=== PATIENT | male | born 1935 | race Caucasian/White ===

== ENCOUNTER 2018-01-09 15:40 | Inpatient (IN) ==
[2018-01-09] MEDS ORDERED: Isovue-370 500 ML INFUS..BTL IV ONE (17:56)
[2018-01-09] MEDS ORDERED: Piperacillin/Tazobactam 3.375 GM in Water for inj. (sterile) 20 ML IVP ONE (17:58)
--- NOTE | 2018-01-09 17:58 | Emergency Department Note ---
Disposition Clinical Impression: Urinary retention Urinary tract infection Qualifiers: Urinary tract infection type: site unspecified Hematuria presence: without hematuria Qualified Code(s): N39.0 - Urinary tract infection, site not specified Fever Qualifiers: Fever type: unspecified Qualified Code(s): R50.9 - Fever, unspecified Sepsis Qualifiers: Sepsis type: sepsis due to unspecified organism Qualified Code(s): A41.9 - Sepsis, unspecified organism Disposition: Still a Patient Condition: Fair [facility] Care Provider[facility] - Forms: ED Satisfaction Letter Fever HPI - General Chief Complaint: ED Fever Stated Complaint: fever after catheter removal Time Seen by Provider: 01/09/18 16:49 Source: patient, family () Limitations: no limitations Nursing Notes Reviewed: Yes Vital Signs Reviewed: Yes - History of Present Illness HPI Narrative: 82-year-old male presents an emergency department with fever. His is at bedside to assist with history. Reported fever 101.9 at home. Patient recently had hernia surgery performed by surgeon Dr. Kim to the right inguinal area. 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 He seen his urologist Dr. Quintero on multiple occasions with hurtado catheter placement. He states this past Sunday the hurtado catheter was removed. This past he continue to have issues with urinary retention and states the emergency department placed a catheter. This past Sunday he saw his urologist again and the catheter was removed and the was instructed to begin straight catheterizations. Since then the reports that he has had urinary urgency. He denies any other symptoms such as cough, congestion, chest pain or shortness of breath. He has noticed some abdominal tenderness to the surgical site but denies any drainage. He is supposed to see Dr. Kim this Sunday to have his lynn removed. reports that patients also confused more than usual. At this time septic workup initiated. Suspected source urinary tract infection versus possible cellulitis. Patient will likely require admission. Pt Subjective Complaint: fever Maximum Temperature Reported: 101.9 F - Related Data Home Medications Medication Instructions Recorded Confirmed Alfuzosin HCl [Uroxatral] 10 mg PO DAILY 12/27/17 12/27/17 Amlodipine Besylate 10 mg PO DAILY 12/27/17 12/27/17 Atorvastatin [Lipitor] 20 mg PO HS 12/27/17 12/27/17 Gabapentin [Neurontin] 600 mg PO BID 12/27/17 12/27/17 Insulin Glargine,Hum.rec.anlog 23 unit SQ HS 12/27/17 12/27/17 [Basaglar Kwikpen U-100] Levothyroxine Sodium [Levo-T] 175 mcg PO DAILY 12/27/17 12/27/17 Losartan Potassium [Cozaar] 100 mg PO DAILY 12/27/17 12/27/17 Metformin HCl [Glucophage] 1,000 mg PO DAILY 12/27/17 12/27/17 Metoprolol Succinate [Toprol Xl] 12.5 mg PO DAILY 12/27/17 12/27/17 Multivitamin [One Daily Essential] 1 tab PO DAILY 12/27/17 12/27/17 [place]-3 Fatty Acids/Fish Oil 1 cap PO DAILY 12/27/17 12/27/17 [[place]-3 Fish Oil 1,000 mg Sfgl] hydroCHLOROthiazide 25 mg PO DAILY 12/27/17 12/27/17 [Hydrochlorothiazide] Previous Rx's Medication Instructions Recorded OxyCODONE/APAP 10/325 [Percocet 1 each PO Q6HR PRN 7 Days #28 12/27/17 10/325 MG] tablet Allergies Allergy/AdvReac Type Severity Reaction Status Date / Time No Known Allergies Allergy Verified 01/04/18 17:04 All systems ED: reviewed and negative except as stated. Review of Systems: As Per HPI Constitutional: Reports: fever. Denies: chills ENT ED: Denies: congestion Cardiovascular: Denies: chest pain Respiratory: Denies: cough, dyspnea Gastrointestinal: Reports: abdominal pain. Denies: nausea, vomiting Genitourinary: Reports: urgency. Denies: dysuria Musculoskeletal: Denies: back pain, neck pain Integumentary: Denies: rash, abrasion Neurological: Reports: confusion. Denies: headache Fever PMH - Past Medical History Medical history: Reports: diabetes, hyperlipidemia, hypertension, thyroid disease Psychiatric history: Reports: no psych history - Social History Smoking Status: Former smoker Alcohol use: Reports: none Drug use: Reports: none Physical Exam - General Limitations: no limitations General appearance: alert, in no apparent distress, obese - Head Head exam: atraumatic, normocephalic, normal inspection - Eye Eye exam: Present: normal appearance, PERRL, EOMI - ENT ENT exam: normal exam, normal oropharynx, mucous membranes moist - Neck Neck exam: Present: normal inspection, full ROM, trachea midline - Chest Chest inspection: Present: normal inspection, symmetric chest wall rise - Respiratory Respiratory exam: Present: normal lung sounds bilaterally - Cardiovascular Cardiovascular exam: Present: regular rate, normal rhythm, normal heart sounds - Abdominal Exam Abdominal exam: Present: soft, tenderness, normal bowel sounds, other (surgical wound in right inguinal area with odor but no discharge, some excoriations and mild surrounding erythema). Absent: distention, guarding, rebound, rigidity, tenderness at McBurney's Point Abdominal tenderness: Present: RLQ - Extremities Exam Extremities exam: Present: normal inspection, full ROM. Absent: tenderness, pedal edema - Neurological Exam Neurological exam: Present: alert, oriented X3 - Expanded Neurological Exam Patient oriented to: Present: person, place, time Motor strength - LUE: 5/5 Motor strength - RUE: 5/5 Motor strength - LLE: 5/5 Motor strength - RLE: 5/5 - Psychiatric Psychiatric exam: Present: normal affect, normal mood - Skin Skin exam: Present: warm, dry, intact, normal color Course Course Narrative: Patient's awake alert and oriented person place and time his abdomen is mildly tender around the surgical site. Issue was febrile here 100.6. He is also tachycardic meeting SIRS criteria. His initial blood pressure was systolic 109. He has been given 2 liter normal saline fluid bolus. Examination of his abdomen shows a well healing surgical wound to the right inguinal area with some surrounding erythema without purulent discharge. There is some excoriations to the area. Suspected sources likely urinary. Evaluation of his urinalysis is consistent with urinary tract infection. Patient has been empirically treated with vancomycin and Zosyn. He has a elevated leukocytosis 23. And baseline anemia 12 that is stable. He has some baseline chronic renal insufficiency that appears at baseline. Lactate is 1.5. Awaiting CT of the abdomen and pelvis without contrast to evaluate for any intra-abdominal source. Patient will likely require admission to medicine pending the final results of the CT abdomen and pelvis. Patient has been signed out to the nighttime physician is Dr. Gonzales and Dr. Guerra pending results of imaging and final disposition. Vital Signs Temperature 100.6 F H 01/09/18 15:42 Pulse Rate 109 01/09/18 15:42 Respiratory Rate 20 01/09/18 15:42 Blood Pressure 108/68 01/09/18 15:42 O2 Sat by Pulse Oximetry 94 01/09/18 15:42 Temperature 100.6 F H 01/09/18 15:42 Pulse Rate 89 01/09/18 18:20 Respiratory Rate 18 01/09/18 18:20 Blood Pressure 127/66 01/09/18 18:20 O2 Sat by Pulse Oximetry 94 01/09/18 18:20 Oxygen Delivery Oxygen Delivery Room Air Fever - MDM Narrative Medical decision making narrative: Patient was discussed with my attending physician who agrees with ED management and final disposition. They independently evaluated the patient. Please refer to their attestation to this encounter for additional information. This note was generated by [email or web address] voice recognition software and as a result grammatical or spelling errors may occur using this program. - Medical Records Medical records reviewed: Yes I reviewed the patient's medical records. - Lab Data Lab results reviewed: Yes I reviewed the patient's lab results. Result diagrams: 01/09/18 18:01 01/09/18 18:01 Lab Results 01/09/18 01/09/18 01/09/18 Range/Units 17:50 18:01 18:01 WBC 23.0 H D (4.3-11.1) K/mcL RBC 4.07 L (4.19-5.50) M/mcL Hgb 12.2 L (12.9-16.9) g/dL Hct 36.3 L (37.5-50.1) % MCV 89.2 (83.0-100.0) fL MCH 30.0 (28.0-33.3) pg MCHC 33.6 (31.6-35.5) g/dL RDW 12.4 (11.5-14.5) % Plt Count 264 (140-400) K/mcL MPV 9.4 (9.4-12.4) fL Immature Gran % 0.8 (0-4) % Seg Neutrophils % 85.2 % Lymphocytes % 6.6 % Monocytes % 6.9 % Eosinophils % 0.3 % Basophils % 0.2 % Neutrophils # 19.6 H (1.6-8.9) K/mcL Lymphocytes # 1.5 (0.6-4.6) K/mcL Monocytes # 1.6 H (0.0-1.3) K/mcL Eosinophils # 0.1 (0.0-0.6) K/mcL Basophils # 0.1 (0.0-0.2) K/mcL Sodium 134 L (136-145) mEq/L Potassium 4.8 (3.5-5.1) mEq/L Chloride 102 (98-107) mEq/L Carbon Dioxide 21 L (23-29) mEq/L BUN 44 H (8-23) mg/dL Creatinine 1.98 H (0.70-1.30) mg/dL Est GFR ( Amer) 40 L (> 60) Est GFR (Non-Af Amer) 33 L (> 60) BUN/Creatinine Ratio 22 (6-26) Glucose 161 H (70-105) mg/dL Calculated Osmolality 293 (280-300) Lactic Acid (0.5-2.2) mmol/L Calcium 9.5 (8.6-10.3) mg/dL Total Bilirubin 1.0 (0.3-1.0) mg/dL Direct Bilirubin 0.3 H (0.0-0.2) mg/dL Indirect Bilirubin 0.7 (0.0-1.2) mg/dL AST 11 L (13-39) Units/L ALT 10 (7-52) Units/L Alkaline Phosphatase 71 (34-104) Units/L Troponin I 0.03 (< 0.04) ng/mL Serum Total Protein 7.3 (6.4-8.9) g/dL Albumin 4.0 (3.5-5.7) g/dL Globulin 3.3 (2.4-3.5) g/dL Albumin/Globulin Ratio 1.2 (1.1-2.2) Urine Color Yellow (Yellow) Urine Clarity Turbid A (Clear) Urine pH 6.0 (5.0-8.0) pH Units Ur Specific [place] 1.016 (1.010-1.025) Urine Protein 100 H (Neg-Trace) mg/dL Urine Glucose (UA) Normal (Normal) mg/dL Urine Ketones Negative (Negative) mg/dL Urine Blood Moderate H (Negative) Urine Nitrite Negative (Negative) Urine Bilirubin Negative (Negative) Urine Urobilinogen Normal (Normal) mg/dL Ur Leukocyte Esterase Large H (Negative) Urine Microscopic RBC 30-50 H (0-3) per hpf Urine Microscopic WBC TNTC H (0-3) per hpf Ur Squamous Epith Cells Many H (None-Few) per lpf Urine Bacteria Many H (None-Few) per hpf Hyaline Casts Few (None-Few) per lpf Ur Culture Indicated? NO. A (NO) 01/09/18 Range/Units 18:01 WBC (4.3-11.1) K/mcL RBC (4.19-5.50) M/mcL Hgb (12.9-16.9) g/dL Hct (37.5-50.1) % MCV (83.0-100.0) fL MCH (28.0-33.3) pg MCHC (31.6-35.5) g/dL RDW (11.5-14.5) % Plt Count (140-400) K/mcL MPV (9.4-12.4) fL Immature Gran % (0-4) % Seg Neutrophils % % Lymphocytes % % Monocytes % % Eosinophils % % Basophils % % Neutrophils # (1.6-8.9) K/mcL Lymphocytes # (0.6-4.6) K/mcL Monocytes # (0.0-1.3) K/mcL Eosinophils # (0.0-0.6) K/mcL Basophils # (0.0-0.2) K/mcL Sodium (136-145) mEq/L Potassium (3.5-5.1) mEq/L Chloride (98-107) mEq/L Carbon Dioxide (23-29) mEq/L BUN (8-23) mg/dL Creatinine (0.70-1.30) mg/dL Est GFR ( Amer) (> 60) Est GFR (Non-Af Amer) (> 60) BUN/Creatinine Ratio (6-26) Glucose (70-105) mg/dL Calculated Osmolality (280-300) Lactic Acid 1.5 (0.5-2.2) mmol/L Calcium (8.6-10.3) mg/dL Total Bilirubin (0.3-1.0) mg/dL Direct Bilirubin (0.0-0.2) mg/dL Indirect Bilirubin (0.0-1.2) mg/dL AST (13-39) Units/L ALT (7-52) Units/L Alkaline Phosphatase (34-104) Units/L Troponin I (< 0.04) ng/mL Serum Total Protein (6.4-8.9) g/dL Albumin (3.5-5.7) g/dL Globulin (2.4-3.5) g/dL Albumin/Globulin Ratio (1.1-2.2) Urine Color (Yellow) Urine Clarity (Clear) Urine pH (5.0-8.0) pH Units Ur Specific [place] (1.010-1.025) Urine Protein (Neg-Trace) mg/dL Urine Glucose (UA) (Normal) mg/dL Urine Ketones (Negative) mg/dL Urine Blood (Negative) Urine Nitrite (Negative) Urine Bilirubin (Negative) Urine Urobilinogen (Normal) mg/dL Ur Leukocyte Esterase (Negative) Urine Microscopic RBC (0-3) per hpf Urine Microscopic WBC (0-3) per hpf Ur Squamous Epith Cells (None-Few) per lpf Urine Bacteria (None-Few) per hpf Hyaline Casts (None-Few) per lpf Ur Culture Indicated? (NO) S.B.A.R. - S.B.A.R. Situation: Demographics, MOA Background: Presenting Complaint, Relevant PMH, Meds, & Allergies Assessment: Vital Signs, Course and respsone to treatment, Exam Concerns, Patient/Family Expectation, Pertinant Lab Results, Outstanding Labs Recommendation: Barrier(s) to disposition, Recommendation based on pending studies, treatments, or consults S.B.A.R. Report Given to: Dr. Gonzales and Dr. Guerra S.B.A.RRadha Repor Time: 19:00 Attestation Statement - Attestation Attestation: I, Fredy Brown DO, examined this patient [id number] and my medical decision-making was reviewed with Artemio Martins DO , Resident Physician. I agree with the documented findings, disposition and treatment plan as described except to the extent set forth below. Please see my progress notes for details.
[2018-01-09 18:06] LABS: Bilirubin,Urine Negative (Negative); Blood,Urine Moderate (Negative); Clarity,Urine Turbid (Clear); Color,Urine Yellow (Yellow); Glucose,Urine (UA) Normal (Normal); Ketones,Urine Negative (Negative); Leukocyte Esterase,Urine Large (Negative); Nitrite,Urine Negative (Negative); Protein,Urine 100 mg/dL (Neg-Trace); Specific Gravity,Urine 1.016 (1.010-1.025); Urobilinogen,Urine Normal (Normal)
[2018-01-09 18:08] LABS: Bacteria,Urine Many per hpf (None-Few); Hyaline Casts,Urine Few per lpf (None-Few); RBC,Urine 30-50 per hpf (0-3); Squamous Epithelial Cell,Urine Many per lpf (None-Few); WBC,Urine TNTC per hpf (0-3)
[2018-01-09] MEDS: 0.9 % Sodium Chloride 1,000 ML IVC SCH ×2 (18:18→19:32)
[2018-01-09] MEDS ORDERED: Piperacillin/Tazobactam 3.375 GM in 0.9 % Sodium Chloride Mini Bag 100 ML IVPB ONE ×2 (18:21→20:15)
[2018-01-09 18:30] LABS: Basophils % 0.2 %; Eosinophils # 0.1 K/mcL (0.0-0.6); Eosinophils % 0.3 %; Hematocrit 36.3 % (37.5-50.1); Hemoglobin 12.2 g/dL (12.9-16.9); Immature Granulocytes % 0.8 % (0-4); Lymphocytes # 1.5 K/mcL (0.6-4.6); Lymphocytes % 6.6 %; Mean Corpuscular HGB Conc 33.6 g/dL (31.6-35.5); Mean Corpuscular Volume 89.2 fL (83.0-100.0); Mean Platelet Volume 9.4 fL (9.4-12.4); Monocytes # 1.6 K/mcL (0.0-1.3); Monocytes % 6.9 %; Platelet Count 264 K/mcL (140-400); Red Blood Count 4.07 M/mcL (4.19-5.50); Red Cell Distribution Width 12.4 % (11.5-14.5); Segmented Neutrophils % 85.2 %
[2018-01-09 18:34] LABS: Basophils # 0.1 K/mcL (0.0-0.2); Neutrophils # 19.6 K/mcL (1.6-8.9)
[2018-01-09 18:46] LABS: Troponin I 0.03 ng/mL (< 0.04)
[2018-01-09 18:51] LABS: Albumin/Globulin Ratio 1.2 (1.1-2.2); Bilirubin,Direct 0.3 mg/dL (0.0-0.2); Bilirubin,Indirect 0.7 mg/dL (0.0-1.2); Calcium 9.5 mg/dL (8.6-10.3); Globulin 3.3 g/dL (2.4-3.5); Potassium 4.8 mEq/L (3.5-5.1); Total Protein 7.3 g/dL (6.4-8.9)
--- NOTE | 2018-01-09 19:08 | Emergency Department Note ---
Disposition Clinical Impression: Urinary retention, Urinary tract infection, Fever, Sepsis Disposition: Admitted As Inpatient Condition: Fair [facility]errals: [facility] [Primary Care Provider[facility] - Forms: ED Satisfaction Letter Time of Disposition: 19:09 General Adult HPI - General Chief complaint: ED Fever Stated complaint: fever after catheter removal Time Seen by Provider: 01/09/18 16:49 Source: patient, family () Limitations: no limitations - History of Present Illness Pain Scale: 0 - Related Data Home Medications Medication Instructions Recorded Confirmed Alfuzosin HCl [Uroxatral] 10 mg PO DAILY 12/27/17 12/27/17 Amlodipine Besylate 10 mg PO DAILY 12/27/17 12/27/17 Atorvastatin [Lipitor] 20 mg PO HS 12/27/17 12/27/17 Gabapentin [Neurontin] 600 mg PO BID 12/27/17 12/27/17 Insulin Glargine,Hum.rec.anlog 23 unit SQ HS 12/27/17 12/27/17 [Basaglar Kwikpen U-100] Levothyroxine Sodium [Levo-T] 175 mcg PO DAILY 12/27/17 12/27/17 Losartan Potassium [Cozaar] 100 mg PO DAILY 12/27/17 12/27/17 Metformin HCl [Glucophage] 1,000 mg PO DAILY 12/27/17 12/27/17 Metoprolol Succinate [Toprol Xl] 12.5 mg PO DAILY 12/27/17 12/27/17 Multivitamin [One Daily Essential] 1 tab PO DAILY 12/27/17 12/27/17 [place]-3 Fatty Acids/Fish Oil 1 cap PO DAILY 12/27/17 12/27/17 [[place]-3 Fish Oil 1,000 mg Sfgl] hydroCHLOROthiazide 25 mg PO DAILY 12/27/17 12/27/17 [Hydrochlorothiazide] Previous Rx's Medication Instructions Recorded OxyCODONE/APAP 10/325 [Percocet 1 each PO Q6HR PRN 7 Days #28 12/27/17 10/325 MG] tablet Allergies Allergy/AdvReac Type Severity Reaction Status Date / Time No Known Allergies Allergy Verified 01/04/18 17:04 Past Medical History - Past Medical History Medical history: Reports: diabetes, hyperlipidemia, hypertension, thyroid disease Psychiatric history: Reports: no psych history - Social History Smoking Status: Former smoker Smokeless Tobacco Status: No Alcohol use: Reports: none Drug use: Reports: none Physical Exam - General Limitations: no limitations General appearance: alert, in no apparent distress Course Vital Signs Temperature 100.6 F H 01/09/18 15:42 Pulse Rate 109 01/09/18 15:42 Respiratory Rate 20 01/09/18 15:42 Blood Pressure 108/68 01/09/18 15:42 O2 Sat by Pulse Oximetry 94 01/09/18 15:42 Temperature 100.6 F H 01/09/18 15:42 Pulse Rate 89 01/09/18 18:20 Respiratory Rate 18 01/09/18 18:20 Blood Pressure 127/66 01/09/18 18:20 O2 Sat by Pulse Oximetry 94 01/09/18 18:20 Oxygen Delivery Oxygen Delivery Room Air Medical Decision Making - Lab Data Result diagrams: 01/09/18 18:01 01/09/18 18:01 Lab Results 01/09/18 01/09/18 01/09/18 Range/Units 17:50 18:01 18:01 WBC 23.0 H D (4.3-11.1) K/mcL RBC 4.07 L (4.19-5.50) M/mcL Hgb 12.2 L (12.9-16.9) g/dL Hct 36.3 L (37.5-50.1) % MCV 89.2 (83.0-100.0) fL MCH 30.0 (28.0-33.3) pg MCHC 33.6 (31.6-35.5) g/dL RDW 12.4 (11.5-14.5) % Plt Count 264 (140-400) K/mcL MPV 9.4 (9.4-12.4) fL Immature Gran % 0.8 (0-4) % Seg Neutrophils % 85.2 % Lymphocytes % 6.6 % Monocytes % 6.9 % Eosinophils % 0.3 % Basophils % 0.2 % Neutrophils # 19.6 H (1.6-8.9) K/mcL Lymphocytes # 1.5 (0.6-4.6) K/mcL Monocytes # 1.6 H (0.0-1.3) K/mcL Eosinophils # 0.1 (0.0-0.6) K/mcL Basophils # 0.1 (0.0-0.2) K/mcL Sodium 134 L (136-145) mEq/L Potassium 4.8 (3.5-5.1) mEq/L Chloride 102 (98-107) mEq/L Carbon Dioxide 21 L (23-29) mEq/L BUN 44 H (8-23) mg/dL Creatinine 1.98 H (0.70-1.30) mg/dL Est GFR ( Amer) 40 L (> 60) Est GFR (Non-Af Amer) 33 L (> 60) BUN/Creatinine Ratio 22 (6-26) Glucose 161 H (70-105) mg/dL Calculated Osmolality 293 (280-300) Lactic Acid (0.5-2.2) mmol/L Calcium 9.5 (8.6-10.3) mg/dL Total Bilirubin 1.0 (0.3-1.0) mg/dL Direct Bilirubin 0.3 H (0.0-0.2) mg/dL Indirect Bilirubin 0.7 (0.0-1.2) mg/dL AST 11 L (13-39) Units/L ALT 10 (7-52) Units/L Alkaline Phosphatase 71 (34-104) Units/L Troponin I 0.03 (< 0.04) ng/mL Serum Total Protein 7.3 (6.4-8.9) g/dL Albumin 4.0 (3.5-5.7) g/dL Globulin 3.3 (2.4-3.5) g/dL Albumin/Globulin Ratio 1.2 (1.1-2.2) Urine Color Yellow (Yellow) Urine Clarity Turbid A (Clear) Urine pH 6.0 (5.0-8.0) pH Units Ur Specific [place] 1.016 (1.010-1.025) Urine Protein 100 H (Neg-Trace) mg/dL Urine Glucose (UA) Normal (Normal) mg/dL Urine Ketones Negative (Negative) mg/dL Urine Blood Moderate H (Negative) Urine Nitrite Negative (Negative) Urine Bilirubin Negative (Negative) Urine Urobilinogen Normal (Normal) mg/dL Ur Leukocyte Esterase Large H (Negative) Urine Microscopic RBC 30-50 H (0-3) per hpf Urine Microscopic WBC TNTC H (0-3) per hpf Ur Squamous Epith Cells Many H (None-Few) per lpf Urine Bacteria Many H (None-Few) per hpf Hyaline Casts Few (None-Few) per lpf Ur Culture Indicated? NO. A (NO) 01/09/18 Range/Units 18:01 WBC (4.3-11.1) K/mcL RBC (4.19-5.50) M/mcL Hgb (12.9-16.9) g/dL Hct (37.5-50.1) % MCV (83.0-100.0) fL MCH (28.0-33.3) pg MCHC (31.6-35.5) g/dL RDW (11.5-14.5) % Plt Count (140-400) K/mcL MPV (9.4-12.4) fL Immature Gran % (0-4) % Seg Neutrophils % % Lymphocytes % % Monocytes % % Eosinophils % % Basophils % % Neutrophils # (1.6-8.9) K/mcL Lymphocytes # (0.6-4.6) K/mcL Monocytes # (0.0-1.3) K/mcL Eosinophils # (0.0-0.6) K/mcL Basophils # (0.0-0.2) K/mcL Sodium (136-145) mEq/L Potassium (3.5-5.1) mEq/L Chloride (98-107) mEq/L Carbon Dioxide (23-29) mEq/L BUN (8-23) mg/dL Creatinine (0.70-1.30) mg/dL Est GFR ( Amer) (> 60) Est GFR (Non-Af Amer) (> 60) BUN/Creatinine Ratio (6-26) Glucose (70-105) mg/dL Calculated Osmolality (280-300) Lactic Acid 1.5 (0.5-2.2) mmol/L Calcium (8.6-10.3) mg/dL Total Bilirubin (0.3-1.0) mg/dL Direct Bilirubin (0.0-0.2) mg/dL Indirect Bilirubin (0.0-1.2) mg/dL AST (13-39) Units/L ALT (7-52) Units/L Alkaline Phosphatase (34-104) Units/L Troponin I (< 0.04) ng/mL Serum Total Protein (6.4-8.9) g/dL Albumin (3.5-5.7) g/dL Globulin (2.4-3.5) g/dL Albumin/Globulin Ratio (1.1-2.2) Urine Color (Yellow) Urine Clarity (Clear) Urine pH (5.0-8.0) pH Units Ur Specific [place] (1.010-1.025) Urine Protein (Neg-Trace) mg/dL Urine Glucose (UA) (Normal) mg/dL Urine Ketones (Negative) mg/dL Urine Blood (Negative) Urine Nitrite (Negative) Urine Bilirubin (Negative) Urine Urobilinogen (Normal) mg/dL Ur Leukocyte Esterase (Negative) Urine Microscopic RBC (0-3) per hpf Urine Microscopic WBC (0-3) per hpf Ur Squamous Epith Cells (None-Few) per lpf Urine Bacteria (None-Few) per hpf Hyaline Casts (None-Few) per lpf Ur Culture Indicated? (NO) Attestation Statement - Attestation Attestation: I, Fredy Brown DO, examined this patient [id number] and my medical decision-making was reviewed with (Artemio Martins DO , Resident Physician. I agree with the documented findings, disposition and treatment plan as described except to the extent set forth below. Please see my progress notes for details. 82-year-old male presents emergency room for evaluation of abdominal pain and intermittent fevers chills or generalized malaise. Patient had a hernia repaired in the right inguinal area of the abdomen almost [address] Kim[address] Patient has been catheterizing home secondary to urinary retention since the procedure. Patient will have evaluation for septic-like presentation considering the elevated heart rate as well as fever. IV antibiotics including vancomycin and Zosyn were started this time all blood cultures. CT abdomen without IV contrast unchanged to noncontrast secondary to renal insufficiency. Patient will be provided with fluids at this point. Evaluation treatment course will be completed. Concern is noted for urinary tract infection versus intra-abdominal pathology secondary to the surgical intervention. Surgical site in the right groin appears to be stable lynn are in place. There is skin excoriation and smell moist tissue secondary to urine at this time. Patient otherwise alert and oriented. Vital signs his. No other acute physical exam findings at this point. Patient will be signed out to the nighttime physicians for definitive management and evaluation. Antibiotics earlier this point all fluids and symptomatically control. See detailed documentation of the physical exam, medical intervention, medical decision- making and disposition in the resident physician's note.
--- NOTE | 2018-01-09 20:28 | Emergency Department Note ---
Disposition Clinical Impression: Urinary retention Urinary tract infection Qualifiers: Urinary tract infection type: site unspecified Hematuria presence: without hematuria Qualified Code(s): N39.0 - Urinary tract infection, site not specified Fever Qualifiers: Fever type: unspecified Qualified Code(s): R50.9 - Fever, unspecified Sepsis Qualifiers: Sepsis type: sepsis due to unspecified organism Qualified Code(s): A41.9 - Sepsis, unspecified organism Disposition: Admitted As Inpatient Condition: Fair [facility] Care Provider[facility] - Forms: ED Satisfaction Letter General Adult HPI - General Chief complaint: ED Fever Stated complaint: fever after catheter removal Time Seen by Provider: 01/09/18 16:49 Source: patient, family () Limitations: no limitations - History of Present Illness HPI Narrative: Patient was signed out by the prior provider. Please see their documentation for complete history and physical. Pain Scale: 0 - Related Data Home Medications Medication Instructions Recorded Confirmed Amlodipine Besylate 10 mg PO DAILY 12/27/17 01/09/18 Atorvastatin [Lipitor] 20 mg PO HS 12/27/17 01/09/18 Gabapentin [Neurontin] 600 mg PO BID 12/27/17 01/09/18 Insulin Glargine,Hum.rec.anlog 23 unit SQ HS 12/27/17 01/09/18 [Basaglar Kwikpen U-100] Levothyroxine Sodium [Levo-T] 175 mcg PO DAILY 12/27/17 01/09/18 Metformin HCl [Glucophage] 1,000 mg PO DAILY 12/27/17 01/09/18 Multivitamin [One Daily Essential] 1 tab PO DAILY 12/27/17 01/09/18 Ammonium Lactate [Lac-Hydrin Five] 1 appl TP BID 01/09/18 01/09/18 Clotrimazole 1 appl TP BID 01/09/18 01/09/18 Tamsulosin HCl [Flomax] 0.4 mg PO DAILY 01/09/18 01/09/18 Triamcinolone Acet 0.1% CRM 1 appl TP BID PRN 01/09/18 01/09/18 [Kenalog] Allergies Allergy/AdvReac Type Severity Reaction Status Date / Time No Known Allergies Allergy Verified 01/04/18 17:04 Constitutional: Reports: fever. Denies: chills ENT ED: Denies: congestion Cardiovascular: Denies: chest pain Respiratory: Denies: cough, dyspnea Gastrointestinal: Reports: abdominal pain. Denies: nausea, vomiting Genitourinary: Reports: urgency. Denies: dysuria Musculoskeletal: Denies: back pain, neck pain Integumentary: Denies: rash, abrasion Neurological: Reports: confusion. Denies: headache Past Medical History - Past Medical History Medical history: Reports: diabetes, hyperlipidemia, hypertension, thyroid disease Psychiatric history: Reports: no psych history - Social History Smoking Status: Former smoker Smokeless Tobacco Status: No Alcohol use: Reports: none Drug use: Reports: none Physical Exam - General Limitations: no limitations General appearance: alert, in no apparent distress, obese Course Course Narrative: At the time of signout the patient was waiting CT scan of the abdomen and pelvis. Concerns of sepsis with likely source in the urine with repeated urinary catheterizations from urinary retention. Patient was started on antibiotics. Patient is a 82-year-old male who presented for complaints of a fever. Patient did meet SIRS criteria with a likely source. Patient was given 2 L of fluid. Patient denies any pain currently. Patient denies any pain or drainage over the incision site. - Reevaluation(s) Reevaluation #1: Patient seen and examined. Patient denies any pain. Plan of care was discussed and the patient will be admitted. Time: 20:27 - Consultations Consultation #1: Discussed the case with Dr. Avendano and made aware of the post operative CT findings. Barlow the source is likely in the urine. Time: 20:33 Vital Signs Temperature 100.6 F H 01/09/18 15:42 Pulse Rate 109 01/09/18 15:42 Respiratory Rate 20 01/09/18 15:42 Blood Pressure 108/68 01/09/18 15:42 O2 Sat by Pulse Oximetry 94 01/09/18 15:42 Temperature 100.6 F H 01/09/18 15:42 Pulse Rate 89 01/09/18 18:20 Respiratory Rate 18 01/09/18 18:20 Blood Pressure 127/66 01/09/18 18:20 O2 Sat by Pulse Oximetry 94 01/09/18 18:20 Oxygen Delivery Oxygen Delivery Room Air Medical Decision Making - Lab Data Lab results reviewed: Yes I reviewed the patient's lab results. Result diagrams: 01/09/18 18:01 04/25/18 18:01 Lab Results 01/09/18 01/09/18 01/09/18 Range/Units 17:50 18:01 18:01 WBC 23.0 H D (4.3-11.1) K/mcL RBC 4.07 L (4.19-5.50) M/mcL Hgb 12.2 L (12.9-16.9) g/dL Hct 36.3 L (37.5-50.1) % MCV 89.2 (83.0-100.0) fL MCH 30.0 (28.0-33.3) pg MCHC 33.6 (31.6-35.5) g/dL RDW 12.4 (11.5-14.5) % Plt Count 264 (140-400) K/mcL MPV 9.4 (9.4-12.4) fL Immature Gran % 0.8 (0-4) % Seg Neutrophils % 85.2 % Lymphocytes % 6.6 % Monocytes % 6.9 % Eosinophils % 0.3 % Basophils % 0.2 % Neutrophils # 19.6 H (1.6-8.9) K/mcL Lymphocytes # 1.5 (0.6-4.6) K/mcL Monocytes # 1.6 H (0.0-1.3) K/mcL Eosinophils # 0.1 (0.0-0.6) K/mcL Basophils # 0.1 (0.0-0.2) K/mcL Sodium 134 L (136-145) mEq/L Potassium 4.8 (3.5-5.1) mEq/L Chloride 102 (98-107) mEq/L Carbon Dioxide 21 L (23-29) mEq/L BUN 44 H (8-23) mg/dL Creatinine 1.98 H (0.70-1.30) mg/dL Est GFR ( Amer) 40 L (> 60) Est GFR (Non-Af Amer) 33 L (> 60) BUN/Creatinine Ratio 22 (6-26) Glucose 161 H (70-105) mg/dL Calculated Osmolality 293 (280-300) Lactic Acid (0.5-2.2) mmol/L Calcium 9.5 (8.6-10.3) mg/dL Total Bilirubin 1.0 (0.3-1.0) mg/dL Direct Bilirubin 0.3 H (0.0-0.2) mg/dL Indirect Bilirubin 0.7 (0.0-1.2) mg/dL AST 11 L (13-39) Units/L ALT 10 (7-52) Units/L Alkaline Phosphatase 71 (34-104) Units/L Troponin I 0.03 (< 0.04) ng/mL Serum Total Protein 7.3 (6.4-8.9) g/dL Albumin 4.0 (3.5-5.7) g/dL Globulin 3.3 (2.4-3.5) g/dL Albumin/Globulin Ratio 1.2 (1.1-2.2) Urine Color Yellow (Yellow) Urine Clarity Turbid A (Clear) Urine pH 6.0 (5.0-8.0) pH Units Ur Specific [place] 1.016 (1.010-1.025) Urine Protein 100 H (Neg-Trace) mg/dL Urine Glucose (UA) Normal (Normal) mg/dL Urine Ketones Negative (Negative) mg/dL Urine Blood Moderate H (Negative) Urine Nitrite Negative (Negative) Urine Bilirubin Negative (Negative) Urine Urobilinogen Normal (Normal) mg/dL Ur Leukocyte Esterase Large H (Negative) Urine Microscopic RBC 30-50 H (0-3) per hpf Urine Microscopic WBC TNTC H (0-3) per hpf Ur Squamous Epith Cells Many H (None-Few) per lpf Urine Bacteria Many H (None-Few) per hpf Hyaline Casts Few (None-Few) per lpf Ur Culture Indicated? NO. A (NO) 01/09/18 Range/Units 18:01 WBC (4.3-11.1) K/mcL RBC (4.19-5.50) M/mcL Hgb (12.9-16.9) g/dL Hct (37.5-50.1) % MCV (83.0-100.0) fL MCH (28.0-33.3) pg MCHC (31.6-35.5) g/dL RDW (11.5-14.5) % Plt Count (140-400) K/mcL MPV (9.4-12.4) fL Immature Gran % (0-4) % Seg Neutrophils % % Lymphocytes % % Monocytes % % Eosinophils % % Basophils % % Neutrophils # (1.6-8.9) K/mcL Lymphocytes # (0.6-4.6) K/mcL Monocytes # (0.0-1.3) K/mcL Eosinophils # (0.0-0.6) K/mcL Basophils # (0.0-0.2) K/mcL Sodium (136-145) mEq/L Potassium (3.5-5.1) mEq/L Chloride (98-107) mEq/L Carbon Dioxide (23-29) mEq/L BUN (8-23) mg/dL Creatinine (0.70-1.30) mg/dL Est GFR ( Amer) (> 60) Est GFR (Non-Af Amer) (> 60) BUN/Creatinine Ratio (6-26) Glucose (70-105) mg/dL Calculated Osmolality (280-300) Lactic Acid 1.5 (0.5-2.2) mmol/L Calcium (8.6-10.3) mg/dL Total Bilirubin (0.3-1.0) mg/dL Direct Bilirubin (0.0-0.2) mg/dL Indirect Bilirubin (0.0-1.2) mg/dL AST (13-39) Units/L ALT (7-52) Units/L Alkaline Phosphatase (34-104) Units/L Troponin I (< 0.04) ng/mL Serum Total Protein (6.4-8.9) g/dL Albumin (3.5-5.7) g/dL Globulin (2.4-3.5) g/dL Albumin/Globulin Ratio (1.1-2.2) Urine Color (Yellow) Urine Clarity (Clear) Urine pH (5.0-8.0) pH Units Ur Specific [place] (1.010-1.025) Urine Protein (Neg-Trace) mg/dL Urine Glucose (UA) (Normal) mg/dL Urine Ketones (Negative) mg/dL Urine Blood (Negative) Urine Nitrite (Negative) Urine Bilirubin (Negative) Urine Urobilinogen (Normal) mg/dL Ur Leukocyte Esterase (Negative) Urine Microscopic RBC (0-3) per hpf Urine Microscopic WBC (0-3) per hpf Ur Squamous Epith Cells (None-Few) per lpf Urine Bacteria (None-Few) per hpf Hyaline Casts (None-Few) per lpf Ur Culture Indicated? (NO) - Radiology Data Radiology results reviewed: Yes I reviewed the patient's radiology results. Abdomen/Pelvis CT 01/09/18 18:53 IMPRESSION: 1. Moderate amount of fluid in the right inguinal canal with inflammatory changes. Findings may reflect postoperative seroma, resolving blood or infectious phlegmon/early abscess. 2. Diffuse bladder wall thickening is nonspecific. Correlate for infectious cystitis. 3. Enlarged prostate. 4. Cholelithiasis. 5. Colonic diverticulosis. D/ / 01/09/2018 20:03:52 Adam Raines MD / bcarter Interpreting Provider: MD Jodi Brenner - Joid Situation: Demographics Background: Presenting Complaint Assessment: Vital Signs, Patient/Family Expectation Recommendation: Barrier(s) to disposition, Recommendation based on pending studies, treatments, or consults [facility] Report Given to: Dr. Rosina Zapata Repor Time: 21:01
--- NOTE | 2018-01-09 20:52 | Emergency Department Note ---
Disposition Clinical Impression: Urinary retention Urinary tract infection Qualifiers: Urinary tract infection type: site unspecified Hematuria presence: without hematuria Qualified Code(s): N39.0 - Urinary tract infection, site not specified Fever Qualifiers: Fever type: unspecified Qualified Code(s): R50.9 - Fever, unspecified Sepsis Qualifiers: Sepsis type: sepsis due to unspecified organism Qualified Code(s): A41.9 - Sepsis, unspecified organism Disposition: Admitted As Inpatient Condition: Fair [facility]: [facility] [Primary Care Provider[facility] - Forms: ED Satisfaction Letter General Adult HPI - General Chief complaint: ED Fever Stated complaint: fever after catheter removal Time Seen by Provider: 01/09/18 16:49 Source: patient, family () Limitations: no limitations Nursing Notes Reviewed: Yes Vital Signs Reviewed: Yes - History of Present Illness Pain Scale: 0 - Related Data Home Medications Medication Instructions Recorded Confirmed Amlodipine Besylate 10 mg PO DAILY 12/27/17 01/09/18 Atorvastatin [Lipitor] 20 mg PO HS 12/27/17 01/09/18 Gabapentin [Neurontin] 600 mg PO BID 12/27/17 01/09/18 Insulin Glargine,Hum.rec.anlog 23 unit SQ HS 12/27/17 01/09/18 [Basaglar Kwikpen U-100] Levothyroxine Sodium [Levo-T] 175 mcg PO DAILY 12/27/17 01/09/18 Metformin HCl [Glucophage] 1,000 mg PO DAILY 12/27/17 01/09/18 Multivitamin [One Daily Essential] 1 tab PO DAILY 12/27/17 01/09/18 Ammonium Lactate [Lac-Hydrin Five] 1 appl TP BID 01/09/18 01/09/18 Clotrimazole 1 appl TP BID 01/09/18 01/09/18 Tamsulosin HCl [Flomax] 0.4 mg PO DAILY 01/09/18 01/09/18 Triamcinolone Acet 0.1% CRM 1 appl TP BID PRN 01/09/18 01/09/18 [Kenalog] Allergies Allergy/AdvReac Type Severity Reaction Status Date / Time No Known Allergies Allergy Verified 01/04/18 17:04 Constitutional: Reports: fever. Denies: chills ENT ED: Denies: congestion Cardiovascular: Denies: chest pain Respiratory: Denies: cough, dyspnea Gastrointestinal: Reports: abdominal pain. Denies: nausea, vomiting Genitourinary: Reports: urgency. Denies: dysuria Musculoskeletal: Denies: back pain, neck pain Integumentary: Denies: rash, abrasion Neurological: Reports: confusion. Denies: headache Past Medical History - Past Medical History Medical history: Reports: diabetes, hyperlipidemia, hypertension, thyroid disease Psychiatric history: Reports: no psych history - Social History Smoking Status: Former smoker Smokeless Tobacco Status: No Alcohol use: Reports: none Drug use: Reports: none Physical Exam - General Limitations: no limitations General appearance: alert, in no apparent distress, obese Course Vital Signs Temperature 100.6 F H 01/09/18 15:42 Pulse Rate 109 01/09/18 15:42 Respiratory Rate 20 01/09/18 15:42 Blood Pressure 108/68 01/09/18 15:42 O2 Sat by Pulse Oximetry 94 01/09/18 15:42 Temperature 100.6 F H 01/09/18 15:42 Pulse Rate 89 01/09/18 18:20 Respiratory Rate 18 01/09/18 18:20 Blood Pressure 127/66 01/09/18 18:20 O2 Sat by Pulse Oximetry 94 01/09/18 18:20 Oxygen Delivery Oxygen Delivery Room Air Medical Decision Making - Lab Data Result diagrams: 01/09/18 18:01 01/09/18 18:01 Lab Results 01/09/18 01/09/18 01/09/18 Range/Units 17:50 18:01 18:01 WBC 23.0 H D (4.3-11.1) K/mcL RBC 4.07 L (4.19-5.50) M/mcL Hgb 12.2 L (12.9-16.9) g/dL Hct 36.3 L (37.5-50.1) % MCV 89.2 (83.0-100.0) fL MCH 30.0 (28.0-33.3) pg MCHC 33.6 (31.6-35.5) g/dL RDW 12.4 (11.5-14.5) % Plt Count 264 (140-400) K/mcL MPV 9.4 (9.4-12.4) fL Immature Gran % 0.8 (0-4) % Seg Neutrophils % 85.2 % Lymphocytes % 6.6 % Monocytes % 6.9 % Eosinophils % 0.3 % Basophils % 0.2 % Neutrophils # 19.6 H (1.6-8.9) K/mcL Lymphocytes # 1.5 (0.6-4.6) K/mcL Monocytes # 1.6 H (0.0-1.3) K/mcL Eosinophils # 0.1 (0.0-0.6) K/mcL Basophils # 0.1 (0.0-0.2) K/mcL Sodium 134 L (136-145) mEq/L Potassium 4.8 (3.5-5.1) mEq/L Chloride 102 (98-107) mEq/L Carbon Dioxide 21 L (23-29) mEq/L BUN 44 H (8-23) mg/dL Creatinine 1.98 H (0.70-1.30) mg/dL Est GFR ( Amer) 40 L (> 60) Est GFR (Non-Af Amer) 33 L (> 60) BUN/Creatinine Ratio 22 (6-26) Glucose 161 H (70-105) mg/dL Calculated Osmolality 293 (280-300) Lactic Acid (0.5-2.2) mmol/L Calcium 9.5 (8.6-10.3) mg/dL Total Bilirubin 1.0 (0.3-1.0) mg/dL Direct Bilirubin 0.3 H (0.0-0.2) mg/dL Indirect Bilirubin 0.7 (0.0-1.2) mg/dL AST 11 L (13-39) Units/L ALT 10 (7-52) Units/L Alkaline Phosphatase 71 (34-104) Units/L Troponin I 0.03 (< 0.04) ng/mL Serum Total Protein 7.3 (6.4-8.9) g/dL Albumin 4.0 (3.5-5.7) g/dL Globulin 3.3 (2.4-3.5) g/dL Albumin/Globulin Ratio 1.2 (1.1-2.2) Urine Color Yellow (Yellow) Urine Clarity Turbid A (Clear) Urine pH 6.0 (5.0-8.0) pH Units Ur Specific [place] 1.016 (1.010-1.025) Urine Protein 100 H (Neg-Trace) mg/dL Urine Glucose (UA) Normal (Normal) mg/dL Urine Ketones Negative (Negative) mg/dL Urine Blood Moderate H (Negative) Urine Nitrite Negative (Negative) Urine Bilirubin Negative (Negative) Urine Urobilinogen Normal (Normal) mg/dL Ur Leukocyte Esterase Large H (Negative) Urine Microscopic RBC 30-50 H (0-3) per hpf Urine Microscopic WBC TNTC H (0-3) per hpf Ur Squamous Epith Cells Many H (None-Few) per lpf Urine Bacteria Many H (None-Few) per hpf Hyaline Casts Few (None-Few) per lpf Ur Culture Indicated? NO. A (NO) 01/09/18 Range/Units 18:01 WBC (4.3-11.1) K/mcL RBC (4.19-5.50) M/mcL Hgb (12.9-16.9) g/dL Hct (37.5-50.1) % MCV (83.0-100.0) fL MCH (28.0-33.3) pg MCHC (31.6-35.5) g/dL RDW (11.5-14.5) % Plt Count (140-400) K/mcL MPV (9.4-12.4) fL Immature Gran % (0-4) % Seg Neutrophils % % Lymphocytes % % Monocytes % % Eosinophils % % Basophils % % Neutrophils # (1.6-8.9) K/mcL Lymphocytes # (0.6-4.6) K/mcL Monocytes # (0.0-1.3) K/mcL Eosinophils # (0.0-0.6) K/mcL Basophils # (0.0-0.2) K/mcL Sodium (136-145) mEq/L Potassium (3.5-5.1) mEq/L Chloride (98-107) mEq/L Carbon Dioxide (23-29) mEq/L BUN (8-23) mg/dL Creatinine (0.70-1.30) mg/dL Est GFR ( Amer) (> 60) Est GFR (Non-Af Amer) (> 60) BUN/Creatinine Ratio (6-26) Glucose (70-105) mg/dL Calculated Osmolality (280-300) Lactic Acid 1.5 (0.5-2.2) mmol/L Calcium (8.6-10.3) mg/dL Total Bilirubin (0.3-1.0) mg/dL Direct Bilirubin (0.0-0.2) mg/dL Indirect Bilirubin (0.0-1.2) mg/dL AST (13-39) Units/L ALT (7-52) Units/L Alkaline Phosphatase (34-104) Units/L Troponin I (< 0.04) ng/mL Serum Total Protein (6.4-8.9) g/dL Albumin (3.5-5.7) g/dL Globulin (2.4-3.5) g/dL Albumin/Globulin Ratio (1.1-2.2) Urine Color (Yellow) Urine Clarity (Clear) Urine pH (5.0-8.0) pH Units Ur Specific [place] (1.010-1.025) Urine Protein (Neg-Trace) mg/dL Urine Glucose (UA) (Normal) mg/dL Urine Ketones (Negative) mg/dL Urine Blood (Negative) Urine Nitrite (Negative) Urine Bilirubin (Negative) Urine Urobilinogen (Normal) mg/dL Ur Leukocyte Esterase (Negative) Urine Microscopic RBC (0-3) per hpf Urine Microscopic WBC (0-3) per hpf Ur Squamous Epith Cells (None-Few) per lpf Urine Bacteria (None-Few) per hpf Hyaline Casts (None-Few) per lpf Ur Culture Indicated? (NO) Critical Care Time Critical Care Time: Yes Total Critical Care Time: 40 Attestation: Critical care performed: Time is exclusive of separately billable procedures. Time includes: direct patient care, patient reassessment, coordination of patient care, interpretation of data (laboratory data, radiology data, and respiratory data), review of patient's medical records, medical consultation and documentation of patient care. Procedures included in critical care time: Procedures excluded from critical care time: Attestation Statement - Attestation Attestation: I, Danial Guerra MD, personally evaluated this patient and discussed their management with the resident physician. I reviewed the resident's note and agree with the documented findings, medical decision making, and plan of care. This patient was signed out from dayshift from Dr. Martins and Dr. Brown. Please refer to their notes for complete details of the history and physical examination. At shift change patient is awaiting a CT of the abdomen and pelvis prior to admission for UTI and sepsis. Patient had a right inguinal hernia repair one to 2 weeks ago. Denies any pain in the area of the inguinal hernia repair. He has had problems with urinary retention and had to have multiple falls catheters and has been doing straight catheters intermittently. On examination patient is a well-developed well-nourished elderly male in no acute distress. He is alert and oriented 3. No cyanosis or diaphoresis. Abdomen soft and nontender with normal bowel sounds. There is some erythema diffusely over the area of the right inguinal hernia repair. No palpable fluctuance. Labs reviewed. CT the abdomen and pelvis showed: 1. Moderate amount of fluid in the right inguinal canal with inflammatory changes. Findings may reflect postoperative seroma, resolving blood or infectious phlegmon/early abscess. 2. Diffuse bladder wall thickening is nonspecific. Correlate for infectious cystitis. Dr. Gonzales discussed the case with the surgeon medical collections, Dr. Avendano, and he recommended hospitalist admission and treat with antibiotics as UTI. The hospitalist, Dr. Almaguer, was consulted and accepted admission of the patient.
[2018-01-10] MEDS ORDERED: Acetaminophen 325 MG TABLET PO PRN (01:13)
[2018-01-10] MEDS ORDERED: *HR* HYDROcodone/Acet 5/325 mg TABLET PO PRN (01:13)
[2018-01-10] MEDS ORDERED: Naloxone 0.4 MG/ML INJ IVP PRN (01:13)
[2018-01-10] MEDS: Nystatin Cream 15 GM TUBE TP SCH ×4 (02:06→21:46)
[2018-01-10] MEDS ORDERED: D5% in Water 1,000 ML IVC PRN (03:14)
[2018-01-10] MEDS ORDERED: *HR* Dextrose 50 % in Water (Syg) 50 ML SYRINGE IVP PRN (03:14)
[2018-01-10] MEDS ORDERED: Dextrose Gel 15 GM/37.5 ML TUBE PO PRN ×2 (03:14)
--- NOTE | 2018-01-10 03:21 | Internal Med History&Physical ---
<Silvana Gil H - Last Filed: 01/10/18 03:21> Date of Encounter: 01/10/18 Time of Encounter: 13:00 Internal Medicine - H&P: HPI Chief complaint: fevers, dysuria Admitted From: Emergency Dept Plans for Post Hospital Care: Home History of present illness: Mr. Davis is a 82 year old male with past medical history of DM, HLD, hypothyroidism, BPH, HTN, CKD, and recent right-sided inguinal hernia repair 2 weeks ago presents to [facility] on 01/09/2018 with complaints of new onset fevers, dysuria, and inability to empty his bladder. Per patient he underwent a repair of his right inguinal hernia and reduction of her prolapsed bladder on [address] figueroa. He experienced some postoperative urinary retention for which he had a Garcia catheter placed. Patient had Garcia catheter removed this past Sunday. He was given instructions to straight catheterize as needed after discontinuation of the Garcia catheter. He denies performing straight catheterization. He developed fevers this morning afterwhich he presented to the ED. In the ED patient had markedly leukocytosis of 23, creatinine of 1.93, and lactic acid of 1.5. His lactic acid quickly trended down with 2 L normal saline bolus bolus to 0.6. CT scan of the abdomen and pelvis demonstrates fluid collection in the right inguinal canal with inflammatory changes suggestive of either postoperative seroma, resolving blood or infectious phlegmon or early abscess. Diffuse bladder wall thickening was noted. Patient was febrile, initially tachycardic with markedly leukocytosis was admitted to the hospitalist for urosepsis. Patient denies any chest pain, palpitations, shortness of breath, nausea, vomiting, diarrhea, hematemesis, melena, or gross hematuria. He denies any itching or pain around his inguinal hernia operative site. Past Med Surg Social Fam HX - Past Medical History Attestation: Yes The following information was validated with the patient. Source: patient, old records reviewed Medical history: diabetes, hyperlipidemia, hypertension, thyroid disease Psychiatric history: no psych history - Past Surgical History Surgical History: herniorrhaphy - Social History Smoking Status: Former smoker Smokeless Tobacco Status: No Alcohol use: none Drug use: none - Family History Mother Adopted: No Living Status: Still Living Hx Family Cardiac Disorders: Yes (Dad) Hx Family Cancer: Yes (mom) Hx Family GI Disorders: No Hx Family Genitourinary Disorders: No Hx Family Endocrine Disorder: No Hx Family Musculoskeletal Disorders: No Hx Family Neuromuscular Disorders: No Hx Family Neurologic Disorders: No Hx Family HEENT Disorders: No Hx Family Autoimmune Disorders: No Hx Family Reproductive Disorders: No Hx Family Psychosocial Disorders: No Hx Family Medical Disorders: No Internal Medicine - H&P: Meds Amlodipine Besylate 10 mg PO DAILY 12/27/17 [History] Atorvastatin [Lipitor] 20 mg PO HS 12/27/17 [History] Gabapentin [Neurontin] 600 mg PO BID 12/27/17 [History] Insulin Glargine,Hum.rec.anlog [Basaglar Kwikpen U-100] 23 unit SQ HS 12/27/17 [ History] Levothyroxine Sodium [Levo-T] 175 mcg PO DAILY 12/27/17 [History] Metformin HCl [Glucophage] 1,000 mg PO DAILY 12/27/17 [History] Multivitamin [One Daily Essential] 1 tab PO DAILY 12/27/17 [History] Ammonium Lactate [Lac-Hydrin Five] 1 appl TP BID 01/09/18 [History] Clotrimazole 1 appl TP BID 01/09/18 [History] Tamsulosin HCl [Flomax] 0.4 mg PO DAILY 01/09/18 [History] Triamcinolone Acet 0.1% CRM [Kenalog] 1 appl TP BID PRN 01/09/18 [History] 3 Allergy/AdvReac Type Severity Reaction Status Date / Time No Known Allergies Allergy Verified 01/04/18 17:04 All Systems PM: A 10-system review of systems was performed and is negative for pertinent findings except as documented above in the HPI. - Constitutional Constitutional: chills, fever(s), malaise, no weight gain, no weight loss - EENT Eyes: no change in vision, no other visual disturbances Nose, mouth and throat: no nasal congestion, no nasal discharge - Cardiovascular Cardiovascular ROS IM: no chest pain, no claudication, no diaphoresis, no dyspnea, no dyspnea on exertion, no edema, no irregular heart rhythm, no lightheadedness, no orthopnea, no palpitations, no paroxysmal nocturnal dyspnea , no syncope - Respiratory Respiratory: no cough, no dyspnea, no chest congestion - Gastrointestinal Gastrointestinal: no abdominal pain, no change in bowel habits, no change in stool character, no coffee ground emesis, no constipation, no hematemesis, no hematochezia, no melena, no nausea Additional comments: Right-sided inguinal hernia repair incision intact. - Genitourinary Genitourinary ROS male: difficulty urinating, dysuria, post void dribbling, urinary frequency - Musculoskeletal Musculoskeletal ROS IM: no joint swelling, no muscle cramps - Integumentary Integumentary IM: erythema (Surrounding inguinal hernia repair.), no rash, no jaundice - Neurological Neurological ROS: no abnormal movements, no abnormal speech, no numbness, no paresthesias, no weakness - Psychiatric Psychiatric: no confusion - Endocrine Endocrine IM: no cold intolerance, no heat intolerance - Constitutional Vitals: Temp Pulse Resp BP Pulse Ox 97.9 F 88 15 154/75 99 01/10/18 03:14 01/10/18 03:14 01/10/18 03:14 01/10/18 03:14 01/10/18 03:14 General appearance: Present: cooperative, A&O X 3, pleasant, no acute distress, answers questions appropriately - Head Head exam: Present: atraumatic, normocephalic - Eye Eye exam: Present: conjuntiva pink, sclera anicteric - Neck Neck exam general surgery: Present: supple, trachea midline. Absent: lymphadenopathy - Respiratory Respiratory exam: Present: CTAB. Absent: accessory muscle use, rales, rhonchi, wheezes - Cardiovascular Cardiovascular exam: Present: RRR, +S1, +S2. Absent: diastolic murmur, gallop, rubs, systolic murmur - GI/Abdominal GI/Abdominal exam: Present: normal bowel sounds, soft, no peritoneal signs. Absent: distended, firm, guarding, hernia, tenderness Additional comments: Right sided inguinal hernia incision c/d/i. However, there is surrounding erythema in the intertriginous area surrounding the incision. There are small satellite lesions appreciated. - Extremities Exam Extremities exam: Present: warm, radial pulses palpable and symmetrical. Absent : calf tenderness, cyanotic, pedal edema - Neurological Exam Neurological exam: Present: CN II-XII intact, oriented X3, no focal deficits. Absent: pronater drift, facial droop, speech deficit - Skin Skin exam: Present: dry, intact Additional comments: See above under abdominal exam. Internal Med - H&P Results - Labs CBC & Chem 7: 01/09/18 18:01 01/09/18 18:01 - Assessment and plan (1) Sepsis Current Visit: Yes Status: Acute Assessment and plan: 82-year-old male presents to [facility] with likely urosepsis. However, CT scan suggestive of potential phlegmon versus early developing abscess in the right inguinal region. Etiology unclear, however, would suspect UTI as the underlying source of urosepsis as patient with bladder thickening on CT scan and urinalysis suggestive of UTI. -We will consult surgery as patient is POD #14 right inguinal hernia repair and reduction of prolapsed bladder. -Continue IVF resuscitation. -Broad-spectrum IV antibiotic coverage with Zosyn and Vancomycin. De-escalate as needed. -Follow-up urine cultures and blood cultures. -Vitals per protocol, morning labs. Qualifiers: Sepsis type: sepsis due to unspecified organism Qualified Code(s): A41.9 - Sepsis, unspecified organism (2) Urinary tract infection Current Visit: Yes Status: Acute Assessment and plan: Patient with CT scan suggestive of UTI with urinalysis and recent history of indwelling Garcia catheter. -Antibiotic coverage with Zosyn and vancomycin as per above under sepsis. -Management as outlined per sepsis above. Qualifiers: Urinary tract infection type: acute cystitis Hematuria presence: without hematuria Qualified Code(s): N30.00 - Acute cystitis without hematuria (3) Chronic kidney disease Current Visit: Yes Status: Acute Assessment and plan: Patient's creatinine 1.98 which is stable over the last month. -We will continue to monitor and avoid nephrotoxic agents. -Pharmacy to dose vancomycin. -Gentle IV hydration. Qualifiers: Chronic kidney disease stage: unspecified stage Qualified Code(s): N18.9 - Chronic kidney disease, unspecified (4) Intertriginous candidiasis Current Visit: Yes Status: Acute Assessment and plan: Nystatin cream applied to the right inguinal region with dry dressing to alleviate skin on skin contact. (5) Urinary retention Current Visit: Yes Status: Acute Assessment and plan: We will continue to monitor. (6) Diabetes Current Visit: Yes Status: Acute Assessment and plan: Before meals at bedtime Accu-Cheks with low-dose sliding scale insulin. 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 Qualifiers: Hypertension type: essential hypertension Qualified Code(s): I10 - Essential (primary) hypertension (8) DVT prophylaxis Current Visit: Yes Status: Acute Assessment and plan: Heparin 5000 units subcutaneous twice a day. - Time Spent With Patient Total time spent is greater than 50% in coordination of care (as documented) at patient's floor/unit and/or counseling patient: <Lenin Almaguer - Last Filed: 01/10/18 05:54> Date of Encounter: 01/10/18 Internal Medicine - H&P: HPI History of present illness: Mr. Davis is a 82 year old male All Systems PM: A 10-system review of systems was performed and is negative for pertinent findings except as documented above in the HPI. - Constitutional Vitals: Temp Pulse Resp BP Pulse Ox 97.9 F 88 15 154/75 99 01/10/18 03:14 01/10/18 03:14 01/10/18 03:14 01/10/18 03:14 01/10/18 03:14 Internal Med - H&P Results - Labs CBC & Chem 7: 01/10/18 03:03 01/10/18 03:03 Labs: Short CBC 01/10/18 Range/Units 03:03 WBC 17.3 H (4.3-11.1) K/mcL Hgb 10.4 L D (12.9-16.9) g/dL Hct 31.6 L (37.5-50.1) % Plt Count 218 (140-400) K/mcL Neutrophils # 14.1 H (1.6-8.9) K/mcL BMP 01/10/18 03:03 Sodium 136 Potassium 4.2 Chloride 107 Carbon Dioxide 20 L BUN 45 H Creatinine 1.88 H Glucose 137 H Calcium 8.3 L - Attending Attestation I examined this patient and my medical decision-making was reviewed with the Resident Physician. I agree with the documented findings, disposition and treatment plan as described except to the extent set forth below. - Time Spent With Patient Total time spent is greater than 50% in coordination of care (as documented) at patient's floor/unit and/or counseling patient:
[2018-01-10 03:32] LABS: Basophils % 0.1 %; Eosinophils # 0.3 K/mcL (0.0-0.6); Eosinophils % 1.7 %; Hematocrit 31.6 % (37.5-50.1); Lymphocytes # 1.5 K/mcL (0.6-4.6); Lymphocytes % 8.9 %; Mean Corpuscular HGB Conc 32.9 g/dL (31.6-35.5); Mean Corpuscular Hemoglobin 30.5 pg (28.0-33.3); Mean Corpuscular Volume 92.7 fL (83.0-100.0); Mean Platelet Volume 9.3 fL (9.4-12.4); Monocytes # 1.2 K/mcL (0.0-1.3); Monocytes % 7.1 %; Neutrophils # 14.1 K/mcL (1.6-8.9); Platelet Count 218 K/mcL (140-400); Red Blood Count 3.41 M/mcL (4.19-5.50); Red Cell Distribution Width 12.3 % (11.5-14.5); Segmented Neutrophils % 81.2 %
[2018-01-10 03:42] LABS: Calcium 8.3 mg/dL (8.6-10.3); Magnesium 1.8 mg/dL (1.6-2.6); Phosphorous 3.6 mg/dL (2.7-4.5); Potassium 4.2 mEq/L (3.5-5.1)
[2018-01-10 03:43] LABS: Hemoglobin 10.4 g/dL (12.9-16.9)
[2018-01-10] MEDS: 0.9 % Sodium Chloride 1,000 ML IVC SCH (05:01)
[2018-01-10] MEDS: *HR* Heparin 5,000 UNIT/ML VIAL SQ SCH ×2 (05:03→17:35)
[2018-01-10] MEDS ORDERED: Piperacillin/Tazobactam 3.375 GM in 0.9 % Sodium Chloride Mini Bag 100 ML IVPB SCH (08:00)
[2018-01-10] MEDS ORDERED: Aminoglycoside Consult 1 EACH MC ONE (08:18)
[2018-01-10] MEDS: Insulin LISPRO 300 UNITS/3 ML VIAL SQ SCH ×4 (08:22→21:47)
[2018-01-10] MEDS: Gabapentin 300 MG CAPSULE PO SCH ×2 (08:24→21:46)
[2018-01-10] MEDS: amLODIPine 5 MG TABLET PO SCH (08:24)
[2018-01-10] MEDS: Triamcinolone Acet 0.1% CRM 15 GM TUBE TP PRN ×2 (08:29→21:47)
[2018-01-10] MEDS: Clotrimazole 1% CRM 15 GM TUBE TP SCH ×2 (08:29→21:46)
[2018-01-10 08:54] LABS: Estimated Average Glucose 183 mg/dl
--- NOTE | 2018-01-10 10:51 | General Surgery Consult Note ---
<Alfredito Wells - Last Filed: 01/10/18 11:08> Date of Encounter: 01/10/18 Time of Encounter: 09:30 Assessment and Plan (1) Sepsis Current Visit: Yes Status: Acute CT reviewed with Dr. Kim. Patient POD14 s/p reduction of bladder herniation with R inguinal hernia repair. Pericystic collection of fluid suggestive of post-op seroma, on review and with clinical correlate, patient does not have early abscess formation. Patient's sepsis on presentation responding to current antibiotic regimen; source likely urosepsis in setting of urinary retention. Follows Dr. Quintero outpatient, missed appointment today due to admission, recent visits for BPH/ catheterization/urinary retention and potential photovaporization of prostate Plan: No drainable abscess, likely post-op seroma Continue urosepsis workup Will give diflucan for 7 days due to intertrigenous vonnie surrounding incision site. Continuing nystatin cream. Qualifiers: Sepsis type: sepsis due to unspecified organism Qualified Code(s): A41.9 - Sepsis, unspecified organism (2) Intertriginous candidiasis Current Visit: Yes Status: Acute Per (1); diflucan and continue nystatin cream (3) Urinary retention Current Visit: Yes Status: Acute Sees Dr. Quintero outpatient, last appt 01/07, missed appt today for continued evaluation of urinary retention/need for catheterization/plan for possible photovaporization of prostate History of Present Illness History of present illness: Interval history: Mr. Davis is an 82 year old male with past medical history of diabetes, hyperlipidemia, hypothyroidism, benign prostatic hypertrophy, hypertension, chronic kidney disease who presents to [facility] on 01/09 with subjective fevers, dysuria, and urinary retention. He is also 2 weeks status-post bladder herniation reduction and R inguinal hernia repair 12/[address] Kim. Leukocytosis on ED labs of ; Creat of 1.93, Lactic acid of 1.5 (3 hr repeat 0.6) Today patient is eating well without nausea/vomiting, he is afebrile, reports good ability to urinate today compared to admission. Past Med Surg Social Fam HX - Past Medical History Medical history: diabetes, hyperlipidemia, hypertension, thyroid disease Psychiatric history: no psych history - Past Surgical History Surgical History: herniorrhaphy - Social History Smoking Status: Former smoker Smokeless Tobacco Status: No Alcohol use: none Drug use: none - Family History Mother Adopted: No Living Status: Still Living Hx Family Cardiac Disorders: Yes (Dad) Hx Family Cancer: Yes (mom) Hx Family GI Disorders: No Hx Family Genitourinary Disorders: No Hx Family Endocrine Disorder: No Hx Family Musculoskeletal Disorders: No Hx Family Neuromuscular Disorders: No Hx Family Neurologic Disorders: No Hx Family HEENT Disorders: No Hx Family Autoimmune Disorders: No Hx Family Reproductive Disorders: No Hx Family Psychosocial Disorders: No Hx Family Medical Disorders: No Medications and Allergies Amlodipine Besylate 10 mg PO DAILY 12/27/17 [History] Atorvastatin [Lipitor] 20 mg PO HS 12/27/17 [History] Gabapentin [Neurontin] 600 mg PO BID 12/27/17 [History] Insulin Glargine,Hum.rec.anlog [Basaglar Kwikpen U-100] 23 unit SQ HS 12/27/17 [ History] Levothyroxine Sodium [Levo-T] 175 mcg PO DAILY 12/27/17 [History] Metformin HCl [Glucophage] 1,000 mg PO DAILY 12/27/17 [History] Multivitamin [One Daily Essential] 1 tab PO DAILY 12/27/17 [History] Ammonium Lactate [Lac-Hydrin Five] 1 appl TP BID 01/09/18 [History] Clotrimazole 1 appl TP BID 01/09/18 [History] Tamsulosin HCl [Flomax] 0.4 mg PO DAILY 01/09/18 [History] Triamcinolone Acet 0.1% CRM [Kenalog] 1 appl TP BID PRN 01/09/18 [History] 3 Allergy/AdvReac Type Severity Reaction Status Date / Time No Known Allergies Allergy Verified 01/04/18 17:04 Review of Systems All systems PM: reviewed and no additional remarkable complaints except as stated All systems PM: The remainder of the systems were reviewed and are negative - Constitutional no chills, no fever(s), no lethargy, no malaise - EENT Nose, mouth and throat: no dizziness - Cardiovascular no chest pain, no dyspnea on exertion - Gastrointestinal no abdominal pain - Genitourinary difficulty urinating, other (redness around incision site R inguinal), no hematuria, no scrotal swelling, no testicular mass, no testicular pain - Musculoskeletal no numbness, no tingling - Integumentary other (per ROS) - Neurological no syncope, no weakness - Psychiatric no anxiety, no depression - Endocrine no fatigue - Hematologic/Lymphatic no easy bleeding General Surgery Exam Initial Vital Signs Temp Pulse Resp BP Pulse Ox 100.6 F H 109 20 108/68 94 01/09/18 15:42 01/09/18 15:42 01/09/18 15:42 01/09/18 15:42 01/09/18 15:42 - General physical appearance well developed, well nourished, no distress - Eyes normal ocular movement - ENT normal mucosa - Neck no lymphadectomy - Respiratory normal expansion, normal respiratory effort, clear to auscultation - Cardiovascular Cardiovascular exam: Present: RRR, no murmurs/rubs/gallops. Absent: JVD - Abdomen Abdomen general surgery: Present: soft, non tender - Incision Incision: Present: intact, erythema - Integumentary Integumentary general surgery: Present: rash - Neurologic Present: normal sensation - Musculoskeletal Present: normal posture - Psychiatric Psychiatric general surgery: Present: A&Ox3, speech is normal, memory intact Exam Initial Vital Signs Temp Pulse Resp BP Pulse Ox 100.6 F H 109 20 108/68 94 01/09/18 15:42 01/09/18 15:42 01/09/18 15:42 01/09/18 15:42 01/09/18 15:42 Results - Labs 01/10/18 03:03 01/10/18 03:03 Abnormal lab results WBC 17.3 K/mcL (4.3-11.1) H 01/10/18 03:03 RBC 3.41 M/mcL (4.19-5.50) L 01/10/18 03:03 Hgb 10.4 g/dL (12.9-16.9) L D 01/10/18 03:03 Hct 31.6 % (37.5-50.1) L 01/10/18 03:03 MPV 9.3 fL (9.4-12.4) L 01/10/18 03:03 Neutrophils # 14.1 K/mcL (1.6-8.9) H 01/10/18 03:03 Carbon Dioxide 20 mEq/L (23-29) L 01/10/18 03:03 BUN 45 mg/dL (8-23) H 01/10/18 03:03 Creatinine 1.88 mg/dL (0.70-1.30) H 01/10/18 03:03 Est GFR ( Amer) 42 (> 60) L 01/10/18 03:03 Est GFR (Non-Af Amer) 35 (> 60) L 01/10/18 03:03 Glucose 137 mg/dL (70-105) H 01/10/18 03:03 POC Glucose 180 mg/dL (70-99) H 01/10/18 10:27 Hemoglobin A1c 8.0 % (-5.6) H 01/10/18 03:03 Calcium 8.3 mg/dL (8.6-10.3) L 01/10/18 03:03 Direct Bilirubin 0.3 mg/dL (0.0-0.2) H 01/09/18 18:01 AST 11 Units/L (13-39) L 01/09/18 18:01 Urine Clarity Turbid (Clear) A 01/09/18 17:50 Urine Protein 100 mg/dL (Neg-Trace) H 01/09/18 17:50 Urine Blood Moderate (Negative) H 01/09/18 17:50 Ur Leukocyte Esterase Large (Negative) H 01/09/18 17:50 Urine Microscopic RBC 30-50 per hpf (0-3) H 01/09/18 17:50 Urine Microscopic WBC TNTC per hpf (0-3) H 01/09/18 17:50 Ur Squamous Epith Cells Many per lpf (None-Few) H 01/09/18 17:50 Urine Bacteria Many per hpf (None-Few) H 01/09/18 17:50 Ur Culture Indicated? NO. (NO) A 01/09/18 17:50 Diabetes panel 01/10/18 01/10/18 Range/Units 03:03 03:03 Sodium 136 (136-145) mEq/L Potassium 4.2 (3.5-5.1) mEq/L Chloride 107 (98-107) mEq/L Carbon Dioxide 20 L (23-29) mEq/L BUN 45 H (8-23) mg/dL Creatinine 1.88 H (0.70-1.30) mg/dL Glucose 137 H (70-105) mg/dL Hemoglobin A1c 8.0 H ( - 5.6) % Calcium 8.3 L (8.6-10.3) mg/dL Calcium panel 01/10/18 Range/Units 03:03 Calcium 8.3 L (8.6-10.3) mg/dL Phosphorus 3.6 (2.7-4.5) mg/dL Pituitary panel 01/10/18 Range/Units 03:03 Sodium 136 (136-145) mEq/L Potassium 4.2 (3.5-5.1) mEq/L Chloride 107 (98-107) mEq/L Carbon Dioxide 20 L (23-29) mEq/L BUN 45 H (8-23) mg/dL Creatinine 1.88 H (0.70-1.30) mg/dL Glucose 137 H (70-105) mg/dL Calcium 8.3 L (8.6-10.3) mg/dL Adrenal panel 01/10/18 Range/Units 03:03 Sodium 136 (136-145) mEq/L Potassium 4.2 (3.5-5.1) mEq/L Chloride 107 (98-107) mEq/L Carbon Dioxide 20 L (23-29) mEq/L BUN 45 H (8-23) mg/dL Creatinine 1.88 H (0.70-1.30) mg/dL Glucose 137 H (70-105) mg/dL Calcium 8.3 L (8.6-10.3) mg/dL All other labs normal. Consult Discharge Plan - Plan Referrals: [facility] [Outside] - 01/22/18 11:00 am <Jc Kim - Last Filed: 01/10/18 16:05> Date of Encounter: 01/10/18 Review of Systems All systems PM: The remainder of the systems were reviewed and are negative General Surgery Exam Initial Vital Signs Temp Pulse Resp BP Pulse Ox 100.6 F H 109 20 108/68 94 01/09/18 15:42 01/09/18 15:42 01/09/18 15:42 01/09/18 15:42 01/09/18 15:42 Exam Initial Vital Signs Temp Pulse Resp BP Pulse Ox 100.6 F H 109 20 108/68 94 01/09/18 15:42 01/09/18 15:42 01/09/18 15:42 01/09/18 15:42 01/09/18 15:42 Results - Labs 01/10/18 03:03 01/10/18 03:03 Abnormal lab results WBC 17.3 K/mcL (4.3-11.1) H 01/10/18 03:03 RBC 3.41 M/mcL (4.19-5.50) L 01/10/18 03:03 Hgb 10.4 g/dL (12.9-16.9) L D 01/10/18 03:03 Hct 31.6 % (37.5-50.1) L 01/10/18 03:03 MPV 9.3 fL (9.4-12.4) L 01/10/18 03:03 Neutrophils # 14.1 K/mcL (1.6-8.9) H 01/10/18 03:03 Carbon Dioxide 20 mEq/L (23-29) L 01/10/18 03:03 BUN 45 mg/dL (8-23) H 01/10/18 03:03 Creatinine 1.88 mg/dL (0.70-1.30) H 01/10/18 03:03 Est GFR ( Amer) 42 (> 60) L 01/10/18 03:03 Est GFR (Non-Af Amer) 35 (> 60) L 01/10/18 03:03 Glucose 137 mg/dL (70-105) H 01/10/18 03:03 POC Glucose 180 mg/dL (70-99) H 01/10/18 10:27 Hemoglobin A1c 8.0 % (-5.6) H 01/10/18 03:03 Calcium 8.3 mg/dL (8.6-10.3) L 01/10/18 03:03 Direct Bilirubin 0.3 mg/dL (0.0-0.2) H 01/09/18 18:01 AST 11 Units/L (13-39) L 01/09/18 18:01 Urine Clarity Turbid (Clear) A 01/09/18 17:50 Urine Protein 100 mg/dL (Neg-Trace) H 01/09/18 17:50 Urine Blood Moderate (Negative) H 01/09/18 17:50 Ur Leukocyte Esterase Large (Negative) H 01/09/18 17:50 Urine Microscopic RBC 30-50 per hpf (0-3) H 01/09/18 17:50 Urine Microscopic WBC TNTC per hpf (0-3) H 01/09/18 17:50 Ur Squamous Epith Cells Many per lpf (None-Few) H 01/09/18 17:50 Urine Bacteria Many per hpf (None-Few) H 01/09/18 17:50 Ur Culture Indicated? NO. (NO) A 01/09/18 17:50 Diabetes panel 01/10/18 01/10/18 Range/Units 03:03 03:03 Sodium 136 (136-145) mEq/L Potassium 4.2 (3.5-5.1) mEq/L Chloride 107 (98-107) mEq/L Carbon Dioxide 20 L (23-29) mEq/L BUN 45 H (8-23) mg/dL Creatinine 1.88 H (0.70-1.30) mg/dL Glucose 137 H (70-105) mg/dL Hemoglobin A1c 8.0 H ( - 5.6) % Calcium 8.3 L (8.6-10.3) mg/dL Calcium panel 01/10/18 Range/Units 03:03 Calcium 8.3 L (8.6-10.3) mg/dL Phosphorus 3.6 (2.7-4.5) mg/dL Pituitary panel 01/10/18 Range/Units 03:03 Sodium 136 (136-145) mEq/L Potassium 4.2 (3.5-5.1) mEq/L Chloride 107 (98-107) mEq/L Carbon Dioxide 20 L (23-29) mEq/L BUN 45 H (8-23) mg/dL Creatinine 1.88 H (0.70-1.30) mg/dL Glucose 137 H (70-105) mg/dL Calcium 8.3 L (8.6-10.3) mg/dL Adrenal panel 01/10/18 Range/Units 03:03 Sodium 136 (136-145) mEq/L Potassium 4.2 (3.5-5.1) mEq/L Chloride 107 (98-107) mEq/L Carbon Dioxide 20 L (23-29) mEq/L BUN 45 H (8-23) mg/dL Creatinine 1.88 H (0.70-1.30) mg/dL Glucose 137 H (70-105) mg/dL Calcium 8.3 L (8.6-10.3) mg/dL All other labs normal. - Attending Attestation I examined this patient and my medical decision-making was reviewed with the Resident Physician. I agree with the documented findings, disposition and treatment plan as described except to the extent set forth below. The patient is seen and evaluated with rest and on rounds. I personally reviewed the CAT scan images. The fluid collection in the right lower quadrant and in the spermatic cord is consistent with postoperative changes. Acute abscess in this area would be extremely unusual. I believe that the patient has elevated white blood cell count and symptoms related to urinary sepsis secondary to bladder outlet obstruction. We will be glad to follow along with you. The patient did have a localized tinea infection in the right groin. Start Tracey Kim MD FACS
[2018-01-10] MEDS: Fluconazole 100 MG TABLET PO SCH (11:47)
--- NOTE | 2018-01-10 14:35 | Internal Med Progress Note ---
<Stevie Hernandez - Last Filed: 01/10/18 14:32> Date of Encounter: 01/10/18 Time of Encounter: 10:10 - Assessment and plan (1) Sepsis Current Visit: Yes Status: Acute Assessment and plan: - Septic on admission likely secondary to urinary tract infection as below - Patient presented with fever, tachycardia, WBC elevation. WBC remains elevated at 17.3, however vitals are normal he no longer meets SIRS criteria - Urinalysis just above infection on presentation - Dictated by recent history of urinary retention following inguinal hernia repair. Patient reports not self catheterizing due to complicated nature - Postoperative day #14 following hernia repair and reduction of prolapsed bladder - CT scan in emergency room suggestive of potential phlegmon versus early developing abscess secondary to surgery, however higher suspicion for urinary tract infection - Started on vancomycin and Zosyn emergency department - Blood cultures, urine cultures pending Plan - We will de-escalate antibiotics to Rocephin day #2 of antibiotics - We will adjust pending culture sensitivities - Consult urology for urinary retention - Surgery was consult that emergency room for possible postsurgical complication Qualifiers: Sepsis type: sepsis due to unspecified organism Qualified Code(s): A41.9 - Sepsis, unspecified organism (2) Urinary tract infection Current Visit: Yes Status: Acute Assessment and plan: - As above for sepsis Qualifiers: Urinary tract infection type: acute cystitis Hematuria presence: without hematuria Qualified Code(s): N30.00 - Acute cystitis without hematuria (3) Urinary retention Current Visit: Yes Status: Acute Assessment and plan: - Postvoid bladder scan showing 411 mL - Secondary to postoperative likely - Consult to urology, presented recommendations (4) Chronic kidney disease Current Visit: Yes Status: Acute Assessment and plan: Patient's creatinine most recently 1.88, improvement from 1.98 on admission - Last known labs in 2014, this is likely the patient's new baseline -We will continue to monitor and avoid nephrotoxic agents. -Gentle IV hydration. Qualifiers: Chronic kidney disease stage: unspecified stage Qualified Code(s): N18.9 - Chronic kidney disease, unspecified (5) Diabetes Current Visit: Yes Status: Acute Assessment and plan: - Blood sugars most recently 137 - A1c of 8.0% on 01/10/18 - Continue sliding scale insulin - Accu-Cheks Qualifiers: Diabetes mellitus type: type 2 Diabetes mellitus care home insulin use: with care home use Diabetes mellitus complication status: without complication Qualified Code(s): E11.9 - Type 2 diabetes mellitus without complications; Z79.4 - terminal make up operator (current) use of insulin; Z79.4 - terminal make up operator ( current) use of insulin; Z79.4 - jail (current) use of insulin; Z79.4 - terminal make up operator (current) use of insulin (6) HTN (hypertension) Current Visit: Yes Status: Acute Assessment and plan: Continue home medications. most recently Qualifiers: Hypertension type: essential hypertension Qualified Code(s): I10 - Essential (primary) hypertension (7) Intertriginous candidiasis Current Visit: Yes Status: Acute Assessment and plan: Nystatin cream applied to the right inguinal region with dry dressing to alleviate skin on skin contact. (8) DVT prophylaxis Current Visit: Yes Status: Acute Assessment and plan: Heparin 5000 units subcutaneous twice a day. - Time Spent With Patient Total time spent is greater than 50% in coordination of care (as documented) at patient's floor/unit and/or counseling patient: 25 - 35 minutes - Subjective Interval history: This note is not for billing purposes as patient was admitted after midnight. Patient seen and examined at bedside this morning. He states that he is expansion no symptoms of fevers, chills, nausea, vomiting, abdominal pain. He states his urination is improving and is able to have a strong stream this morning. He states over the last couple days he has been avoiding self- catheterization due to complication of pain. Denies any symptoms of dysuria, hematuria, flank pain. States overall he feels much better compared to presentation to the emergency room. - Constitutional Vitals: Temp Pulse Resp BP Pulse Ox 98.0 F 81 18 112/62 94 01/10/18 10:55 01/10/18 10:55 01/10/18 10:55 01/10/18 10:55 01/10/18 10:55 General appearance: Present: cooperative, A&O X 3, pleasant, no acute distress, answers questions appropriately Exam: Gen.: Vitals noted. No acute distress. AAOx3 HEENT: PERRL/EOMI, oropharynx clear, Normocephalic, atraumatic, MMM Cardiac: RRR, no murmur, +S1/S2 Pulmonary: CTA bilaterally, no wheezes, rales or rhonchi, equal chest expansion Abdomen: soft, nontender, BS noted, no guarding. Wound dressing covering right lower abdomen, no signs of local infection aside from minor erythema. Back: Nontender throughout. Extremities: no BLE edema, nontender calf, no cyanosis or clubbing Neuro: A&Ox3, moves all extremities, no focal deficits Psych: Appropriate mood and behavior Internal Medicine: Result - Labs CBC & Chem 7: 01/10/18 03:03 01/10/18 03:03 Labs: Short CBC 01/10/18 Range/Units 03:03 WBC 17.3 H (4.3-11.1) K/mcL Hgb 10.4 L D (12.9-16.9) g/dL Hct 31.6 L (37.5-50.1) % Plt Count 218 (140-400) K/mcL Neutrophils # 14.1 H (1.6-8.9) K/mcL BMP 01/10/18 03:03 Sodium 136 Potassium 4.2 Chloride 107 Carbon Dioxide 20 L BUN 45 H Creatinine 1.88 H Glucose 137 H Calcium 8.3 L Consult Discharge Plan - Plan Referrals: [facility] [Outside] - 01/22/18 11:00 am <Mohsen Mike - Last Filed: 01/10/18 20:32> Date of Encounter: 01/10/18 - Assessment and plan (1) Urinary retention Current Visit: Yes Status: Acute (2) Urinary tract infection Current Visit: Yes Status: Acute Qualifiers: Urinary tract infection type: acute cystitis Hematuria presence: without hematuria Qualified Code(s): N30.00 - Acute cystitis without hematuria (3) Sepsis Current Visit: Yes Status: Acute Qualifiers: Sepsis type: sepsis due to unspecified organism Qualified Code(s): A41.9 - Sepsis, unspecified organism (4) Chronic kidney disease Current Visit: Yes Status: Acute Qualifiers: Chronic kidney disease stage: unspecified stage Qualified Code(s): N18.9 - Chronic kidney disease, unspecified (5) Diabetes Current Visit: Yes Status: Acute Qualifiers: Diabetes mellitus type: type 2 Diabetes mellitus care home insulin use: with care home use Diabetes mellitus complication status: without complication Qualified Code(s): E11.9 - Type 2 diabetes mellitus without complications; Z79.4 - terminal make up operator (current) use of insulin; Z79.4 - terminal make up operator ( current) use of insulin; Z79.4 - jail (current) use of insulin; Z79.4 - jail (current) use of insulin (6) HTN (hypertension) Current Visit: Yes Status: Acute Qualifiers: Hypertension type: essential hypertension Qualified Code(s): I10 - Essential (primary) hypertension (7) Intertriginous candidiasis Current Visit: Yes Status: Acute (8) DVT prophylaxis Current Visit: Yes Status: Acute - Time Spent With Patient Total time spent is greater than 50% in coordination of care (as documented) at patient's floor/unit and/or counseling patient: - Constitutional Vitals: Temp Pulse Resp BP Pulse Ox 99.5 F 95 15 155/70 98 01/10/18 19:04 01/10/18 19:04 01/10/18 19:04 01/10/18 19:04 01/10/18 19:04 Internal Medicine: Result - Labs CBC & Chem 7: 01/10/18 03:03 01/10/18 03:03 - Attending Attestation I performed a history and physical examination of the patient and discussed his/ her management with the resident. I reviewed the residents note and agree with the documented findings and plan of care.
--- NOTE | 2018-01-10 16:57 | Urology - Consult Note ---
Date of Encounter: 01/10/18 Time of Encounter: 16:55 - Assessment and Plan (1) Sepsis Current Visit: Yes Status: Acute Assessment and plan: I will order a new urine culture. This will be sent and we will see if there are any bacteria growing out. He is currently on ceftriaxone and fluconazole. Continue IV antibiotic. Qualifiers: Sepsis type: sepsis due to unspecified organism Qualified Code(s): A41.9 - Sepsis, unspecified organism (2) Urinary retention Current Visit: Yes Status: Acute Assessment and plan: He has incomplete emptying. His renal function is fairly stable. It is slightly elevated from his baseline, however. I discussed replacement of his catheter versus continued observation. He would like to try to go without a catheter for now. We will follow his white blood cell count and his renal function and see were the trend goes. If they continue to improve, we will keep him without his catheter. If his white blood cell count or creatinine worsen, then we will need to leave an indwelling catheter. We are planning on performing a photo vaporization of prostate as an outpatient. (3) Urinary tract infection Current Visit: Yes Status: Acute Qualifiers: Urinary tract infection type: acute cystitis Hematuria presence: without hematuria Qualified Code(s): N30.00 - Acute cystitis without hematuria Urology CN:HPI Consult date: 01/10/18 Reason for consult Urology: Other (Urinary retention, uti) History of present illness: 82-year-old gentleman well-known to the urology service returns to the hospital for urinary tract infection and incomplete bladder emptying. He recently passed a voiding trial. He was able to urinate. He was doing well for a few days, and then he reports having difficulty with feeling weakness and inability to void well. He came to the emergency department. A CT scan showed somewhat of a distended bladder. He had a leukocytosis. There was concern for urinary tract infection. He was admitted for further care. He says that he is able to urinate, but he occasionally has some difficulty completing his stream. He still has some slowness of his stream as well. No catheter has been placed at this time. A urine culture was not obtained. Past Med Surg Social Fam HX - Past Medical History Medical history: diabetes, hyperlipidemia, hypertension, thyroid disease Psychiatric history: no psych history - Past Surgical History Surgical History: herniorrhaphy - Social History Smoking Status: Former smoker Smokeless Tobacco Status: No Alcohol use: none Drug use: none - Family History Mother Adopted: No Living Status: Still Living Hx Family Cardiac Disorders: Yes (Dad) Hx Family Cancer: Yes (mom) Hx Family GI Disorders: No Hx Family Genitourinary Disorders: No Hx Family Endocrine Disorder: No Hx Family Musculoskeletal Disorders: No Hx Family Neuromuscular Disorders: No Hx Family Neurologic Disorders: No Hx Family HEENT Disorders: No Hx Family Autoimmune Disorders: No Hx Family Reproductive Disorders: No Hx Family Psychosocial Disorders: No Hx Family Medical Disorders: No Medications and Allergies Amlodipine Besylate 10 mg PO DAILY 12/27/17 [History] Atorvastatin [Lipitor] 20 mg PO HS 12/27/17 [History] Gabapentin [Neurontin] 600 mg PO BID 12/27/17 [History] Insulin Glargine,Hum.rec.anlog [Basaglar Kwikpen U-100] 23 unit SQ HS 12/27/17 [ History] Levothyroxine Sodium [Levo-T] 175 mcg PO DAILY 12/27/17 [History] Metformin HCl [Glucophage] 1,000 mg PO DAILY 12/27/17 [History] Multivitamin [One Daily Essential] 1 tab PO DAILY 12/27/17 [History] Ammonium Lactate [Lac-Hydrin Five] 1 appl TP BID 01/09/18 [History] Clotrimazole 1 appl TP BID 01/09/18 [History] Tamsulosin HCl [Flomax] 0.4 mg PO DAILY 01/09/18 [History] Triamcinolone Acet 0.1% CRM [Kenalog] 1 appl TP BID PRN 01/09/18 [History] 3 Allergy/AdvReac Type Severity Reaction Status Date / Time No Known Allergies Allergy Verified 01/04/18 17:04 Review of Systems - Constitutional chills, fever(s) - EENT Nose, mouth and throat: no dizziness - Cardiovascular no chest pain - Respiratory no dyspnea - Gastrointestinal no nausea, no vomiting - Genitourinary difficulty urinating, no flank pain, no hematuria - Musculoskeletal no back pain - Integumentary no erythema, no rash - Neurological no weakness - Psychiatric no suicidal ideation - Hematologic/Lymphatic no easy bleeding - Allergic/Immunologic no wheezing Exam Initial Vital Signs Temp Pulse Resp BP Pulse Ox 100.6 F H 109 20 108/68 94 01/09/18 15:42 01/09/18 15:42 01/09/18 15:42 01/09/18 15:42 01/09/18 15:42 - General physical appearance Present: well developed, well nourished, no distress - Eyes Absent: icteric - ENT Present: normal nares - Neck Present: trachea midline - Respiratory Present: normal respiratory effort - Cardiovascular Cardiovascular exam IM: RRR - Abdomen Abdomen: Present: soft (incision is healing well. Mild suprapubic edema) - Genitourinary normal penis with no external lesions Urology Results - Labs 01/10/18 03:03 01/10/18 03:03 Abnormal lab results WBC 17.3 K/mcL (4.3-11.1) H 01/10/18 03:03 RBC 3.41 M/mcL (4.19-5.50) L 01/10/18 03:03 Hgb 10.4 g/dL (12.9-16.9) L D 01/10/18 03:03 Hct 31.6 % (37.5-50.1) L 01/10/18 03:03 MPV 9.3 fL (9.4-12.4) L 01/10/18 03:03 Neutrophils # 14.1 K/mcL (1.6-8.9) H 01/10/18 03:03 Carbon Dioxide 20 mEq/L (23-29) L 01/10/18 03:03 BUN 45 mg/dL (8-23) H 01/10/18 03:03 Creatinine 1.88 mg/dL (0.70-1.30) H 01/10/18 03:03 Est GFR ( Amer) 42 (> 60) L 01/10/18 03:03 Est GFR (Non-Af Amer) 35 (> 60) L 01/10/18 03:03 Glucose 137 mg/dL (70-105) H 01/10/18 03:03 POC Glucose 201 mg/dL (70-99) H 01/10/18 16:36 Hemoglobin A1c 8.0 % (-5.6) H 01/10/18 03:03 Calcium 8.3 mg/dL (8.6-10.3) L 01/10/18 03:03 Direct Bilirubin 0.3 mg/dL (0.0-0.2) H 01/09/18 18:01 AST 11 Units/L (13-39) L 01/09/18 18:01 Urine Clarity Turbid (Clear) A 01/09/18 17:50 Urine Protein 100 mg/dL (Neg-Trace) H 01/09/18 17:50 Urine Blood Moderate (Negative) H 01/09/18 17:50 Ur Leukocyte Esterase Large (Negative) H 01/09/18 17:50 Urine Microscopic RBC 30-50 per hpf (0-3) H 01/09/18 17:50 Urine Microscopic WBC TNTC per hpf (0-3) H 01/09/18 17:50 Ur Squamous Epith Cells Many per lpf (None-Few) H 01/09/18 17:50 Urine Bacteria Many per hpf (None-Few) H 01/09/18 17:50 Ur Culture Indicated? NO. (NO) A 01/09/18 17:50 Diabetes panel 01/10/18 01/10/18 Range/Units 03:03 03:03 Sodium 136 (136-145) mEq/L Potassium 4.2 (3.5-5.1) mEq/L Chloride 107 (98-107) mEq/L Carbon Dioxide 20 L (23-29) mEq/L BUN 45 H (8-23) mg/dL Creatinine 1.88 H (0.70-1.30) mg/dL Glucose 137 H (70-105) mg/dL Hemoglobin A1c 8.0 H ( - 5.6) % Calcium 8.3 L (8.6-10.3) mg/dL Calcium panel 01/10/18 Range/Units 03:03 Calcium 8.3 L (8.6-10.3) mg/dL Phosphorus 3.6 (2.7-4.5) mg/dL Pituitary panel 01/10/18 Range/Units 03:03 Sodium 136 (136-145) mEq/L Potassium 4.2 (3.5-5.1) mEq/L Chloride 107 (98-107) mEq/L Carbon Dioxide 20 L (23-29) mEq/L BUN 45 H (8-23) mg/dL Creatinine 1.88 H (0.70-1.30) mg/dL Glucose 137 H (70-105) mg/dL Calcium 8.3 L (8.6-10.3) mg/dL Adrenal panel 01/10/18 Range/Units 03:03 Sodium 136 (136-145) mEq/L Potassium 4.2 (3.5-5.1) mEq/L Chloride 107 (98-107) mEq/L Carbon Dioxide 20 L (23-29) mEq/L BUN 45 H (8-23) mg/dL Creatinine 1.88 H (0.70-1.30) mg/dL Glucose 137 H (70-105) mg/dL Calcium 8.3 L (8.6-10.3) mg/dL All other labs normal. - Imaging CT scan - abdomen: report reviewed, image reviewed CT scan - pelvis: report reviewed, image reviewed Consult Discharge Plan - Plan Referrals: [facility] [Outside] - 01/22/18 11:00 am
[2018-01-11] MEDS: 0.9 % Sodium Chloride 1,000 ML IVC SCH (00:16)
[2018-01-11 04:42] LABS: Basophils % 0.3 %; Eosinophils # 0.5 K/mcL (0.0-0.6); Eosinophils % 4.6 %; Hematocrit 32.5 % (37.5-50.1); Hemoglobin 11.2 g/dL (12.9-16.9); Immature Granulocytes % 2.6 % (0-4); Lymphocytes # 1.5 K/mcL (0.6-4.6); Lymphocytes % 13.3 %; Mean Corpuscular HGB Conc 34.5 g/dL (31.6-35.5); Mean Corpuscular Hemoglobin 31.3 pg (28.0-33.3); Mean Corpuscular Volume 90.8 fL (83.0-100.0); Mean Platelet Volume 9.7 fL (9.4-12.4); Monocytes # 1.1 K/mcL (0.0-1.3); Monocytes % 9.6 %; Platelet Count 216 K/mcL (140-400); Red Blood Count 3.58 M/mcL (4.19-5.50); Red Cell Distribution Width 12.2 % (11.5-14.5); Segmented Neutrophils % 69.6 %
[2018-01-11 05:31] LABS: Calcium 8.8 mg/dL (8.6-10.3); Potassium 4.5 mEq/L (3.5-5.1)
[2018-01-11] MEDS: *HR* Heparin 5,000 UNIT/ML VIAL SQ SCH ×2 (06:22→17:55)
--- NOTE | 2018-01-11 07:29 | Urology Progress Note ---
Date of Encounter: 01/11/18 Time of Encounter: 07:27 - Assessment and Plan (1) Sepsis Current Visit: Yes Status: Acute Assessment and plan: Improving. Await final urine culture results. Qualifiers: Sepsis type: sepsis due to unspecified organism Qualified Code(s): A41.9 - Sepsis, unspecified organism (2) Urinary retention Current Visit: Yes Status: Acute Assessment and plan: His white blood cell count and creatinine are improving. He is able to void. I will hold off on catheter placement at this time. We will monitor for now. (3) Urinary tract infection Current Visit: Yes Status: Acute Qualifiers: Urinary tract infection type: acute cystitis Hematuria presence: without hematuria Qualified Code(s): N30.00 - Acute cystitis without hematuria Progress Note Narrative: Doing well this morning. No fevers overnight. He says he is able to urinate okay. White blood cell count is improved. Creatinine is improved. Objective Initial Vital Signs Temp Pulse Resp BP Pulse Ox 100.6 F H 109 20 108/68 94 01/09/18 15:42 01/09/18 15:42 01/09/18 15:42 01/09/18 15:42 01/09/18 15:42 - General physical appearance Present: well developed, well nourished, no distress - Respiratory Present: normal respiratory effort - Abdomen Present: soft - Labs 01/11/18 04:28 01/11/18 04:41 Diabetes panel 01/11/18 Range/Units 04:41 Sodium 137 (136-145) mEq/L Potassium 4.5 (3.5-5.1) mEq/L Chloride 107 (98-107) mEq/L Carbon Dioxide 22 L (23-29) mEq/L BUN 39 H (8-23) mg/dL Creatinine 1.75 H (0.70-1.30) mg/dL Glucose 166 H (70-105) mg/dL Calcium 8.8 (8.6-10.3) mg/dL Calcium panel 01/11/18 Range/Units 04:41 Calcium 8.8 (8.6-10.3) mg/dL Pituitary panel 01/11/18 Range/Units 04:41 Sodium 137 (136-145) mEq/L Potassium 4.5 (3.5-5.1) mEq/L Chloride 107 (98-107) mEq/L Carbon Dioxide 22 L (23-29) mEq/L BUN 39 H (8-23) mg/dL Creatinine 1.75 H (0.70-1.30) mg/dL Glucose 166 H (70-105) mg/dL Calcium 8.8 (8.6-10.3) mg/dL Adrenal panel 01/11/18 Range/Units 04:41 Sodium 137 (136-145) mEq/L Potassium 4.5 (3.5-5.1) mEq/L Chloride 107 (98-107) mEq/L Carbon Dioxide 22 L (23-29) mEq/L BUN 39 H (8-23) mg/dL Creatinine 1.75 H (0.70-1.30) mg/dL Glucose 166 H (70-105) mg/dL Calcium 8.8 (8.6-10.3) mg/dL Consult Discharge Plan - Plan Referrals: [facility] [Outside] - 01/22/18 11:00 am
[2018-01-11] MEDS: Insulin LISPRO 300 UNITS/3 ML VIAL SQ SCH ×4 (08:53→21:39)
[2018-01-11] MEDS: cefTRIAXone 1,000 MG in Water for inj. (sterile) 20 ML 10 ML IVP SCH (08:54)
[2018-01-11] MEDS: Fluconazole 100 MG TABLET PO SCH (08:55)
[2018-01-11] MEDS: amLODIPine 5 MG TABLET PO SCH (08:55)
[2018-01-11] MEDS: Gabapentin 300 MG CAPSULE PO SCH ×2 (08:55→21:41)
[2018-01-11] MEDS: Clotrimazole 1% CRM 15 GM TUBE TP SCH ×2 (08:56→21:42)
[2018-01-11] MEDS: Nystatin Cream 15 GM TUBE TP SCH ×3 (08:56→21:42)
--- NOTE | 2018-01-11 09:31 | General Surgery Progress Note ---
<Alfredito Wells - Last Filed: 01/11/18 09:34> Date of Encounter: 01/11/18 Time of Encounter: 08:00 - Assessment and Plan (1) Sepsis Current Visit: Yes Status: Acute CT reviewed with Dr. Kim. Patient POD14 s/p reduction of bladder herniation with R inguinal hernia repair. Pericystic collection of fluid suggestive of post-op seroma, on review and with clinical correlate, patient does not have early abscess formation. Patient's sepsis on presentation responding to current antibiotic regimen; source likely urosepsis in setting of urinary retention. Follows Dr. Quintero outpatient, missed appointment today due to admission, recent visits for BPH/ catheterization/urinary retention and potential photovaporization of prostate. Wt ct downtrending, Creat improving, pt afebrile, good UOP Plan: Continuing 7 day course of diflucan and nystatin topical in setting of intetrigenous yeast around incision site Surgery will sign-off; thank you for the consult. Qualifiers: Sepsis type: sepsis due to unspecified organism Qualified Code(s): A41.9 - Sepsis, unspecified organism (2) Intertriginous candidiasis Current Visit: Yes Status: Acute Per (1); diflucan and continue nystatin cream (3) Urinary retention Current Visit: Yes Status: Acute Good UOP today Sees Dr. Quintero outpatient, last appt 01/07, missed appt today for continued evaluation of urinary retention/need for catheterization/plan for possible photovaporization of prostate Subjective Narrative: Mr. Davis has good UOP without catheterization yesterday and today. He denies abdominal/pelvic pain, his pain is controlled, he is afebrile. Objective Vital Signs - Last 8 Hours Temp Pulse Resp BP Pulse Ox 01/11/18 07:31 98.1 F 80 18 131/77 96 01/11/18 03:32 98.3 F 78 15 122/66 98 Intake and Output 01/10/18 01/11/18 01/11/18 23:59 07:59 15:59 Intake Total 0 / 0 1000 / 1000 Output Total 775 / 775 985 / 985 Balance -775 / -775 15 / 15 Intake: IV Fluids 1000 / 1000 0.9 % Sodium Chloride 1,000 ML 1000 / 1000 @ 75 mls/hr IVC .[id number] [facility] Rx #:[id number] Oral 0 / 0 0 / 0 Output: Urine 775 / 775 985 / 985 Other: # Voids 1 # Bowel Movements 1 Weight 103.1 kg Blood Glucose* 220 166 Patient Weight 01/11/18 23:59 Weight 103.1 kg - General physical appearance well developed, well nourished, no distress - Eyes normal ocular movement - ENT normal mucosa - Neck Neck exam: no lymphadectomy - Respiratory normal expansion, normal respiratory effort, clear to auscultation - Abdomen Abdomen: Present: soft, non tender. Absent: guarding, rebound, rigid - Neurologic normal coordination, normal sensation - Psychiatric speech is normal, memory intact - Labs 01/11/18 04:28 01/11/18 04:41 Diabetes panel 01/11/18 Range/Units 04:41 Sodium 137 (136-145) mEq/L Potassium 4.5 (3.5-5.1) mEq/L Chloride 107 (98-107) mEq/L Carbon Dioxide 22 L (23-29) mEq/L BUN 39 H (8-23) mg/dL Creatinine 1.75 H (0.70-1.30) mg/dL Glucose 166 H (70-105) mg/dL Calcium 8.8 (8.6-10.3) mg/dL Calcium panel 01/11/18 Range/Units 04:41 Calcium 8.8 (8.6-10.3) mg/dL Pituitary panel 01/11/18 Range/Units 04:41 Sodium 137 (136-145) mEq/L Potassium 4.5 (3.5-5.1) mEq/L Chloride 107 (98-107) mEq/L Carbon Dioxide 22 L (23-29) mEq/L BUN 39 H (8-23) mg/dL Creatinine 1.75 H (0.70-1.30) mg/dL Glucose 166 H (70-105) mg/dL Calcium 8.8 (8.6-10.3) mg/dL Adrenal panel 01/11/18 Range/Units 04:41 Sodium 137 (136-145) mEq/L Potassium 4.5 (3.5-5.1) mEq/L Chloride 107 (98-107) mEq/L Carbon Dioxide 22 L (23-29) mEq/L BUN 39 H (8-23) mg/dL Creatinine 1.75 H (0.70-1.30) mg/dL Glucose 166 H (70-105) mg/dL Calcium 8.8 (8.6-10.3) mg/dL Consult Discharge Plan - Plan Referrals: [facility] [Outside] - 01/22/18 11:00 am <Jc Kim - Last Filed: 01/11/18 18:46> Date of Encounter: 01/11/18 Objective Vital Signs - Last 8 Hours Temp Pulse Resp BP Pulse Ox 01/11/18 14:58 98.1 F 84 18 137/82 96 01/11/18 10:54 97.6 F 72 18 131/74 99 Intake and Output 01/11/18 01/11/18 01/11/18 07:59 15:59 23:59 Intake Total 1000 / 1000 370 / 370 360 / 360 Output Total 985 / 985 650 / 650 Balance -280 / -280 360 / 360 Intake: IV Fluids 1000 / 1000 0.9 % Sodium Chloride 1,000 ML 1000 / 1000 @ 75 mls/hr IVC .[id number] [facility] Rx #:[id number] Rocephin 1,000 MG In Water for inj. (sterile) 10 ML @ 300 mls/ hr IVP DAILY [facility] Rx#:[id number] Oral 0 / 0 360 / 360 360 / 360 Output: Urine 985 / 985 650 / 650 Other: Meal Lunch Dinner Percent of Meal Consumed 100% 90% # Bowel Movements 1 Weight 103.1 kg Blood Glucose* 166 170 213 Patient Weight 01/11/18 23:59 Weight 103.1 kg - Labs 01/11/18 04:28 01/11/18 04:41 Diabetes panel 01/11/18 Range/Units 04:41 Sodium 137 (136-145) mEq/L Potassium 4.5 (3.5-5.1) mEq/L Chloride 107 (98-107) mEq/L Carbon Dioxide 22 L (23-29) mEq/L BUN 39 H (8-23) mg/dL Creatinine 1.75 H (0.70-1.30) mg/dL Glucose 166 H (70-105) mg/dL Calcium 8.8 (8.6-10.3) mg/dL Calcium panel 01/11/18 Range/Units 04:41 Calcium 8.8 (8.6-10.3) mg/dL Pituitary panel 01/11/18 Range/Units 04:41 Sodium 137 (136-145) mEq/L Potassium 4.5 (3.5-5.1) mEq/L Chloride 107 (98-107) mEq/L Carbon Dioxide 22 L (23-29) mEq/L BUN 39 H (8-23) mg/dL Creatinine 1.75 H (0.70-1.30) mg/dL Glucose 166 H (70-105) mg/dL Calcium 8.8 (8.6-10.3) mg/dL Adrenal panel 01/11/18 Range/Units 04:41 Sodium 137 (136-145) mEq/L Potassium 4.5 (3.5-5.1) mEq/L Chloride 107 (98-107) mEq/L Carbon Dioxide 22 L (23-29) mEq/L BUN 39 H (8-23) mg/dL Creatinine 1.75 H (0.70-1.30) mg/dL Glucose 166 H (70-105) mg/dL Calcium 8.8 (8.6-10.3) mg/dL - Attending Attestation I examined this patient and my medical decision-making was reviewed with the Resident Physician. I agree with the documented findings, disposition and treatment plan as described except to the extent set forth below. The patient is seen and evaluated on morning rounds with resident. The patient appears to have a tenia skin infection and is started on Diflucan. The fluid collection on the CAT scan is consistent with postoperative seroma. Continue current treatment plan. We will sign off. Jc Kim MD FACS
--- NOTE | 2018-01-11 14:18 | Internal Med Progress Note ---
Date of Encounter: 01/11/18 Time of Encounter: 14:15 - Assessment and plan (1) Sepsis Current Visit: Yes Status: Resolved Assessment and plan: - Septic on admission likely secondary to urinary tract infection as below - Patient presented with fever, tachycardia, WBC elevation. Leukocytosis resolved 11.4, vitals are normal he no longer meets SIRS criteria - Urinalysis just above infection on presentation - Reported recent history of urinary retention following inguinal hernia repair. Patient reports not self catheterizing due to complicated nature - Postoperative day #15 following hernia repair and reduction of prolapsed bladder - CT scan in emergency room suggestive of potential phlegmon versus early developing abscess secondary to surgery, however higher suspicion for urinary tract infection - Started on vancomycin and Zosyn emergency department - Blood cultures negative preliminary growth, urine cultures preliminary growing gram-negative tammie Plan - Continue Rocephin day #3 of antibiotics - We will adjust pending culture sensitivities - Consult urology for urinary retention, see below - Surgery was consulted in emergency room for possible postsurgical complication , no concerns of postoperative infection Qualifiers: Sepsis type: sepsis due to unspecified organism Qualified Code(s): A41.9 - Sepsis, unspecified organism (2) Urinary tract infection Current Visit: Yes Status: Acute Assessment and plan: - As above for sepsis Qualifiers: Urinary tract infection type: acute cystitis Hematuria presence: without hematuria Qualified Code(s): N30.00 - Acute cystitis without hematuria (3) Urinary retention Current Visit: Yes Status: Acute Assessment and plan: - Postvoid bladder scan showing 411 mL - Secondary to postoperative likely - Consult to urology, appreciated recommendations - Urology has evaluated and do not feel a need for a Garcia catheter as long as he continues to improve - We will follow-up as outpatient for photo vaporization of prostate (4) Chronic kidney disease Current Visit: Yes Status: Acute Assessment and plan: Patient's creatinine most recently 1.75, improvement from 1.98 on admission - Last known labs in 2014, this is likely the patient's new baseline -We will continue to monitor and avoid nephrotoxic agents. 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 most recently Qualifiers: Hypertension type: essential hypertension Qualified Code(s): I10 - Essential (primary) hypertension (7) Intertriginous candidiasis Current Visit: Yes Status: Acute Assessment and plan: Nystatin cream applied to the right inguinal region with dry dressing to alleviate skin on skin contact. (8) DVT prophylaxis Current Visit: Yes Status: Acute Assessment and plan: Heparin 5000 units subcutaneous twice a day. - Time Spent With Patient Total time spent is greater than 50% in coordination of care (as documented) at patient's floor/unit and/or counseling patient: 25 - 35 minutes - Subjective Interval history: Patient was seen and examined at bedside this morning. He states that overall he is feeling very well with no complaints of fevers, chills, dysuria, abdominal pain, nausea, vomiting. He states that he is urinating well and discussed with the urologist not needing a Garcia catheter, which he is very pleased about. - Constitutional Vitals: Temp Pulse Resp BP Pulse Ox 97.6 F 72 18 131/74 99 01/11/18 10:54 01/11/18 10:54 01/11/18 10:54 01/11/18 10:54 01/11/18 10:54 General appearance: Present: cooperative, A&O X 3, pleasant, no acute distress, answers questions appropriately Exam: Gen.: Vitals noted. No acute distress. AAOx3 HEENT: PERRL/EOMI, oropharynx clear, Normocephalic, atraumatic, moist mucous membranes Cardiac: RRR, no murmur, +S1/S2 Pulmonary: CTA bilaterally, no wheezes, rales or rhonchi, equal chest expansion Abdomen: soft, nontender, BS noted, no guarding MSK: ROM intact, no joint swelling noted Extremities: no BLE edema, nontender calf, no cyanosis or clubbing Neuro: A&Ox3, moves all extremities, no focal deficits Psych: Appropriate mood and behavior Internal Medicine: Result - Labs CBC & Chem 7: 01/11/18 04:28 01/11/18 04:41 Labs: Short CBC 01/11/18 Range/Units 04:28 WBC 11.4 H (4.3-11.1) K/mcL Hgb 11.2 L (12.9-16.9) g/dL Hct 32.5 L (37.5-50.1) % Plt Count 216 (140-400) K/mcL Neutrophils # 8.0 (1.6-8.9) K/mcL BMP 01/11/18 04:41 Sodium 137 Potassium 4.5 Chloride 107 Carbon Dioxide 22 L BUN 39 H Creatinine 1.75 H Glucose 166 H Calcium 8.8 Consult Discharge Plan - Plan Referrals: [facility] [Outside] - 01/22/18 11:00 am
[2018-01-12 05:59] LABS: Basophils % 0.3 %; Eosinophils # 0.6 K/mcL (0.0-0.6); Eosinophils % 6.3 %; Hematocrit 35.6 % (37.5-50.1); Hemoglobin 11.8 g/dL (12.9-16.9); Immature Granulocytes % 1.6 % (0-4); Lymphocytes # 1.7 K/mcL (0.6-4.6); Mean Corpuscular HGB Conc 33.1 g/dL (31.6-35.5); Mean Corpuscular Hemoglobin 30.3 pg (28.0-33.3); Mean Corpuscular Volume 91.3 fL (83.0-100.0); Mean Platelet Volume 9.1 fL (9.4-12.4); Monocytes # 0.9 K/mcL (0.0-1.3); Monocytes % 10.7 %; Neutrophils # 5.5 K/mcL (1.6-8.9); Platelet Count 281 K/mcL (140-400); Red Cell Distribution Width 12.2 % (11.5-14.5); Segmented Neutrophils % 62.1 %
[2018-01-12 06:20] LABS: Calcium 8.9 mg/dL (8.6-10.3); Potassium 4.5 mEq/L (3.5-5.1)
[2018-01-12] MEDS: *HR* Heparin 5,000 UNIT/ML VIAL SQ SCH (06:44)
--- NOTE | 2018-01-12 08:13 | Urology Progress Note ---
Date of Encounter: 01/12/18 Time of Encounter: 08:11 - Assessment and Plan (1) Sepsis Current Visit: Yes Status: Resolved Qualifiers: Sepsis type: sepsis due to unspecified organism Qualified Code(s): A41.9 - Sepsis, unspecified organism (2) Urinary retention Current Visit: Yes Status: Acute (3) Urinary tract infection Current Visit: Yes Status: Acute Assessment and plan: 82-year-old man with a UTI after removal of Garcia catheter. He is voiding well. Okay to discharge home on oral antibiotics. He can follow-up with me in 1-2 weeks for a discussion regarding definitive bladder outlet management. Qualifiers: Urinary tract infection type: acute cystitis Hematuria presence: without hematuria Qualified Code(s): N30.00 - Acute cystitis without hematuria Progress Note Narrative: Doing well this morning. He is urinating well. No issues at this time. Urine culture has final sensitivities. Objective Initial Vital Signs Temp Pulse Resp BP Pulse Ox 100.6 F H 109 20 108/68 94 01/09/18 15:42 01/09/18 15:42 01/09/18 15:42 01/09/18 15:42 01/09/18 15:42 - General physical appearance Present: well developed, well nourished, no distress - Respiratory Present: normal expansion - Abdomen Present: soft - Labs 01/12/18 05:34 01/12/18 05:34 Diabetes panel 01/12/18 Range/Units 05:34 Sodium 135 L (136-145) mEq/L Potassium 4.5 (3.5-5.1) mEq/L Chloride 106 (98-107) mEq/L Carbon Dioxide 22 L (23-29) mEq/L BUN 36 H (8-23) mg/dL Creatinine 1.67 H (0.70-1.30) mg/dL Glucose 164 H (70-105) mg/dL Calcium 8.9 (8.6-10.3) mg/dL Calcium panel 01/12/18 Range/Units 05:34 Calcium 8.9 (8.6-10.3) mg/dL Pituitary panel 01/12/18 Range/Units 05:34 Sodium 135 L (136-145) mEq/L Potassium 4.5 (3.5-5.1) mEq/L Chloride 106 (98-107) mEq/L Carbon Dioxide 22 L (23-29) mEq/L BUN 36 H (8-23) mg/dL Creatinine 1.67 H (0.70-1.30) mg/dL Glucose 164 H (70-105) mg/dL Calcium 8.9 (8.6-10.3) mg/dL Adrenal panel 01/12/18 Range/Units 05:34 Sodium 135 L (136-145) mEq/L Potassium 4.5 (3.5-5.1) mEq/L Chloride 106 (98-107) mEq/L Carbon Dioxide 22 L (23-29) mEq/L BUN 36 H (8-23) mg/dL Creatinine 1.67 H (0.70-1.30) mg/dL Glucose 164 H (70-105) mg/dL Calcium 8.9 (8.6-10.3) mg/dL Consult Discharge Plan - Plan Referrals: [facility] [Outside] - 01/22/18 11:00 am
[2018-01-12] MEDS: Gabapentin 300 MG CAPSULE PO SCH (08:28)
[2018-01-12] MEDS: Fluconazole 100 MG TABLET PO SCH (08:28)
[2018-01-12] MEDS: cefTRIAXone 1,000 MG in Water for inj. (sterile) 20 ML 10 ML IVP SCH (08:29)
[2018-01-12] MEDS: amLODIPine 5 MG TABLET PO SCH (08:29)
[2018-01-12] MEDS: Insulin LISPRO 300 UNITS/3 ML VIAL SQ SCH (08:30)
--- NOTE | 2018-01-12 11:56 | Discharge Summary ---
- NOTES TO OUTPATIENT PROVIDER Notes to Outpatient Provider: Follow-up BMP for renal function. He is near baseline renal function on discharge. Orders not resulted at time of discharge: Pending orders 01/10/18 20:30 Culture,Urine [RM] Routine Date of Encounter: 01/12/18 Time of Encounter: 11:53 - Discharge Diagnosis (1) Sepsis Priority: Primary Status: Resolved Qualifiers: Sepsis type: sepsis due to unspecified organism Qualified Code(s): A41.9 - Sepsis, unspecified organism (2) Urinary tract infection Priority: Secondary Status: Acute Assessment and Plan: - As above for sepsis Qualifiers: Urinary tract infection type: acute cystitis Hematuria presence: without hematuria Qualified Code(s): N30.00 - Acute cystitis without hematuria (3) Urinary retention Priority: Secondary Status: Acute Assessment and Plan: - Postvoid bladder scan showing 411 mL - Secondary to postoperative likely - Consult to urology, appreciated recommendations - Urology has evaluated and do not feel a need for a Gracia catheter as long as he continues to improve - We will follow-up as outpatient for photo vaporization of prostate (4) Chronic kidney disease Priority: Secondary Status: Acute Qualifiers: Chronic kidney disease stage: unspecified stage Qualified Code(s): N18.9 - Chronic kidney disease, unspecified (5) Diabetes Priority: Secondary Status: Acute Qualifiers: Diabetes mellitus type: type 2 Diabetes mellitus longterm insulin use: with longterm use Diabetes mellitus complication status: without complication Qualified Code(s): E11.9 - Type 2 diabetes mellitus without complications; Z79.4 - assisted (current) use of insulin; 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 Davis is a 82 year old male with past medical history of DM, HLD, hypothyroidism, BPH, HTN, CKD, and recent right-sided inguinal hernia repair 2 weeks ago presents to [facility] on 01/09/2018 with complaints of new onset fevers, dysuria, and inability to empty his bladder. Per patient he underwent a repair of his right inguinal hernia and reduction of her prolapsed bladder on [address] figueroa. He experienced some postoperative urinary retention for which he had a Garcia catheter placed. Patient had Garcia catheter removed this past Sunday. He was given instructions to straight catheterize as needed after discontinuation of the Garcia catheter. He denies performing straight catheterization. He developed fevers this morning afterwhich he presented to the ED. In the ED patient had markedly leukocytosis of 23, creatinine of 1.93, and lactic acid of 1.5. His lactic acid quickly trended down with 2 L normal saline bolus bolus to 0.6. CT scan of the abdomen and pelvis demonstrates fluid collection in the right inguinal canal with inflammatory changes suggestive of either postoperative seroma, resolving blood or infectious phlegmon or early abscess. Diffuse bladder wall thickening was noted. Patient was febrile, initially tachycardic with markedly leukocytosis was admitted to the hospitalist for urosepsis. Surgery was consulted and after evaluation, the CT findings most likely represent a post-op seroma. He was started on Rocephin for UTI. Patient wanted to avoid catheter and was able to urinate on his own. Urology was consulted and agreed with treating UTI sepsis with outpatient follow-up. He was de escalated to Rocephin and cultures came back. Based on sensitivities and side effect profile, he is discharged on Omnicef to take for 14 days and Urology outpatient follow-up in 1-2 weeks. Advise determining if should remain on antibiotics. Patient no longer septic, blood cultures were negative. He was discharged home in stable condition. - Time Spent with Patient Total time spent providing and/or coordinating discharge services: - Discharge Medications Prescriptions: Fluconazole [Diflucan] 100 mg PO DAILY #5 tablet Nystatin Cream [Mycostatin Cream] 1 appl TP TID #1 tube Home Medications: Amlodipine Besylate 10 mg PO DAILY 12/27/17 [History] Atorvastatin [Lipitor] 20 mg PO HS 12/27/17 [History] Gabapentin [Neurontin] 600 mg PO BID 12/27/17 [History] Insulin Glargine,Hum.rec.anlog [Basaglar Kwikpen U-100] 23 unit SQ HS 12/27/17 [ History] Levothyroxine Sodium [Levo-T] 175 mcg PO DAILY 12/27/17 [History] Metformin HCl [Glucophage] 1,000 mg PO DAILY 12/27/17 [History] Multivitamin [One Daily Essential] 1 tab PO DAILY 12/27/17 [History] Ammonium Lactate [Lac-Hydrin Five] 1 appl TP BID 01/09/18 [History] Clotrimazole 1 appl TP BID 01/09/18 [History] Tamsulosin HCl [Flomax] 0.4 mg PO DAILY 01/09/18 [History] Triamcinolone Acet 0.1% CRM [Kenalog] 1 appl TP BID PRN 01/09/18 [History] Cefdinir [Omnicef] 300 mg PO BID #28 capsule 01/12/18 [Rx] Fluconazole [Diflucan] 100 mg PO DAILY #5 tablet 01/12/18 [Rx] Nystatin Cream [Mycostatin Cream] 1 appl TP TID #1 tube 01/12/18 [Rx] Allergies/Adverse Reactions: 3 Allergy/AdvReac Type Severity Reaction Status Date / Time No Known Allergies Allergy Verified 01/04/18 17:04 Date of admission: 01/10/18 14:31 [facility] care physician: [facility] Discharging clinician: Mohsen Mike - Constitutional Vitals: Temp Pulse Resp BP Pulse Ox 98.1 F 77 18 122/62 95 01/12/18 07:41 01/12/18 07:41 01/12/18 07:41 01/12/18 07:41 01/12/18 07:41 General appearance: Present: cooperative, A&O X 3, pleasant, no acute distress, answers questions appropriately Exam: Gen.: Vitals noted. No acute distress. AAOx3 HEENT: PERRL/EOMI, oropharynx clear, Normocephalic, atraumatic, moist mucous membranes Cardiac: RRR, no murmur, +S1/S2 Pulmonary: CTA bilaterally, no wheezes, rales or rhonchi, equal chest expansion Abdomen: soft, nontender, BS noted, no guarding MSK: ROM intact, no joint swelling noted Extremities: no BLE edema, nontender calf, no cyanosis or clubbing Neuro: A&Ox3, moves all extremities, no focal deficits Psych: Appropriate mood and behavior - Patient Status Disposition: Home, Self-Care Condition: Fair Functional capacity at discharge: independent ambulation Overall status at discharge: patient is back to baseline - Discharge Instructions Follow Up With: [facility] [Outside] - 01/22/18 11:00 am - Diet and Activity Activity: increase activity as tolerated Diet: advance to your usual diet
[2018-01-12 12:03] VITALS: BP 134/65
--- NOTE | 2018-01-12 17:12 | Electrocardiograph Report ---
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
== END 2018-01-12 12:46 | disposition home or self-care (01) | DRG 872 ==
LOC: 3ANU 15:40 → EMEROO 15:40 → 3ANU 23:32
PROVIDERS: ADMIT Internal Medicine Cardiovascular Disease; ATTEND Internal Medicine Cardiovascular Disease

== ENCOUNTER 2021-03-03 14:35 | Inpatient (IN) ==
[2021-03-03 15:28] LABS: Hematocrit 44.5 % (37.5-50.1); Hemoglobin 15.2 g/dL (12.9-16.9); Mean Corpuscular HGB Conc 34.2 g/dL (31.6-35.5); Mean Corpuscular Hemoglobin 30.8 pg (28.0-33.3); Mean Corpuscular Volume 90.3 fL (83.0-100.0); Mean Platelet Volume 9.5 fL (9.4-12.4); Platelet Count 167 K/mcL (140-400); Red Blood Count 4.93 M/mcL (4.19-5.50); Red Cell Distribution Width 12.7 % (11.5-14.5); White Blood Count 9.4 K/mcL (4.3-11.1)
[2021-03-03 15:51] LABS: Acetaminophen < 10 mcg/mL (10-20); BUN/Creatinine Ratio 18 (6-26); Blood Urea Nitrogen 22 mg/dL (8-23); Calcium 9.8 mg/dL (8.6-10.3); Carbon Dioxide 23 mEq/L (23-29); Chloride 104 mEq/L (98-107); Ethanol < 10 mg/dL (Less than 10); Glucose 191 mg/dL (70-105); Osmolality,Calculated 294 (280-300); Potassium 3.7 mEq/L (3.5-5.1); Salicylate < 2.5 mg/dL (15.0-30.0); Sodium 138 mEq/L (136-145); Troponin I < 0.03 ng/mL (< 0.04); eGFR For African Americans > 60 (> 60); eGFR For Non-African Americans 56 (> 60)
[2021-03-03] MEDS ORDERED: Aspirin 325 MG TABLET PO ONE (17:18)
[2021-03-03 17:22] LABS: Amphetamine Screen,Urine Negative ng/mL (Cutoff=1000); Barbiturate Screen,Urine Negative ng/mL (Cutoff=200); Benzodiazepines Screen,Urine Negative ng/mL (Cutoff=200); Cannabinoid Screen,Urine Negative ng/mL (Cutoff = 50); Cocaine Screen,Urine Negative ng/mL (Cutoff= 300); Opiate Screen,Urine Negative ng/mL (Cutoff=300); Phencyclidine Screen,Urine Negative ng/mL (Cutoff=25)
[2021-03-03 17:48] LABS: Bilirubin,Urine Negative (Negative); Blood,Urine Negative (Negative); Clarity,Urine Clear (Clear); Color,Urine Light-Yellow (Yellow); Glucose,Urine (UA) 70 mg/dL (Normal); Ketones,Urine Negative (Negative); Leukocyte Esterase,Urine Negative (Negative); Nitrite,Urine Negative (Negative); Protein,Urine 100 mg/dL (Neg-Trace); RBC,Urine 0-3 per hpf (0-3); Specific Gravity,Urine 1.018 (1.010-1.025); Urobilinogen,Urine Normal (Normal); WBC,Urine 0-3 per hpf (0-3)
[2021-03-03] MEDS ORDERED: Naloxone 0.4 MG/ML INJ IVP PRN (17:48)
[2021-03-03] MEDS ORDERED: Dextrose Gel 15 GM/37.5 ML TUBE PO PRN ×2 (17:54)
[2021-03-03] MEDS ORDERED: D5% in Water 1,000 ML IVC PRN (17:54)
[2021-03-03] MEDS ORDERED: *HR* Dextrose 50 % in Water (Vial) 50 ML VIAL IVP PRN (17:54)
[2021-03-03] MEDS ORDERED: Perflutren Lipid Microsphere 1.3 ML in 0.9 % Sodium Chloride 8.7 ML IVP PRN (18:12)
[2021-03-04 05:58] LABS: Hematocrit 40.7 % (37.5-50.1); Hemoglobin 14.3 g/dL (12.9-16.9); Mean Corpuscular HGB Conc 35.1 g/dL (31.6-35.5); Mean Corpuscular Hemoglobin 31.6 pg (28.0-33.3); Mean Platelet Volume 9.5 fL (9.4-12.4); Platelet Count 158 K/mcL (140-400); Red Blood Count 4.52 M/mcL (4.19-5.50); Red Cell Distribution Width 12.7 % (11.5-14.5); White Blood Count 8.2 K/mcL (4.3-11.1)
[2021-03-04 06:05] LABS: BUN/Creatinine Ratio 17 (6-26); Blood Urea Nitrogen 20 mg/dL (8-23); Calcium 9.4 mg/dL (8.6-10.3); Carbon Dioxide 24 mEq/L (23-29); Chloride 107 mEq/L (98-107); Chol/HDL Ratio 3.7 (0-4.9); Cholesterol 123 mg/dL (< 200); Glucose 124 mg/dL (70-105); HDL Cholesterol 33 mg/dL (40-59); LDL Cholesterol,Calculated 57 mg/dL (< 100); Osmolality,Calculated 290 (280-300); Potassium 3.7 mEq/L (3.5-5.1); Sodium 138 mEq/L (136-145); Triglycerides 164 mg/dL (< 150); eGFR For African Americans > 60 (> 60); eGFR For Non-African Americans 59 (> 60)
[2021-03-04] MEDS: Insulin LISPRO 300 UNITS/3 ML VIAL SUBQ SCH ×3 (08:23→17:24)
[2021-03-04] MEDS: Aspirin 81 MG TAB.CHEW PO SCH (08:33)
[2021-03-04 14:17] LABS: Estimated Average Glucose 143 mg/dl; Hemoglobin A1C 6.6 %
[2021-03-04] MEDS ORDERED: levETIRAcetam 1,000 MG in 0.9 % Sodium Chloride 100 ML IVPB ONE (17:41)
[2021-03-04] MEDS: Gabapentin 300 MG CAPSULE PO SCH (19:13)
[2021-03-05 06:59] LABS: Hematocrit 44.1 % (37.5-50.1); Hemoglobin 15.4 g/dL (12.9-16.9); Mean Corpuscular HGB Conc 34.9 g/dL (31.6-35.5); Mean Corpuscular Hemoglobin 31.8 pg (28.0-33.3); Mean Corpuscular Volume 91.1 fL (83.0-100.0); Mean Platelet Volume 9.4 fL (9.4-12.4); Platelet Count 163 K/mcL (140-400); Red Blood Count 4.84 M/mcL (4.19-5.50); Red Cell Distribution Width 12.9 % (11.5-14.5); White Blood Count 8.6 K/mcL (4.3-11.1)
[2021-03-05] MEDS: amLODIPine 5 MG TABLET PO SCH (08:20)
[2021-03-05] MEDS: allopurinoL 100 MG TABLET PO SCH (08:21)
[2021-03-05] MEDS: Gabapentin 300 MG CAPSULE PO SCH ×2 (08:21→20:38)
[2021-03-05] MEDS: Aspirin 81 MG TAB.CHEW PO SCH (08:23)
[2021-03-05] MEDS: Insulin LISPRO 300 UNITS/3 ML VIAL SUBQ SCH ×3 (08:23→17:58)
[2021-03-05] MEDS: *HR* Heparin 5,000 UNIT/ML VIAL SQ SCH (17:59)
[2021-03-05] MEDS: levETIRAcetam 250 MG TABLET PO SCH (18:00)
[2021-03-06 05:29] LABS: Hematocrit 42.3 % (37.5-50.1); Hemoglobin 14.5 g/dL (12.9-16.9); Mean Corpuscular HGB Conc 34.3 g/dL (31.6-35.5); Mean Corpuscular Hemoglobin 31.5 pg (28.0-33.3); Mean Platelet Volume 9.7 fL (9.4-12.4); Platelet Count 162 K/mcL (140-400); Red Cell Distribution Width 12.8 % (11.5-14.5); White Blood Count 9.2 K/mcL (4.3-11.1)
[2021-03-06] MEDS: *HR* Heparin 5,000 UNIT/ML VIAL SQ SCH (05:33)
[2021-03-06] MEDS: levETIRAcetam 250 MG TABLET PO SCH (05:36)
[2021-03-06 05:52] LABS: BUN/Creatinine Ratio 27 (6-26); Blood Urea Nitrogen 37 mg/dL (8-23); Carbon Dioxide 23 mEq/L (23-29); Chloride 105 mEq/L (98-107); Glucose 146 mg/dL (70-105); Osmolality,Calculated 295 (280-300); Potassium 4.1 mEq/L (3.5-5.1); Sodium 137 mEq/L (136-145); eGFR For African Americans > 60 (> 60); eGFR For Non-African Americans 50 (> 60)
[2021-03-06] MEDS: Insulin LISPRO 300 UNITS/3 ML VIAL SUBQ SCH (07:23)
[2021-03-06] MEDS: Aspirin 81 MG TAB.CHEW PO SCH (09:30)
[2021-03-06] MEDS: Gabapentin 300 MG CAPSULE PO SCH (09:31)
[2021-03-06] MEDS: amLODIPine 5 MG TABLET PO SCH (09:31)
[2021-03-06] MEDS: allopurinoL 100 MG TABLET PO SCH (09:31)
[2021-03-06 11:06] VITALS: BP 133/79
== END 2021-03-06 12:30 | disposition home health service (06) | DRG 101 ==
LOC: EMEROOARM 14:35 → 3BNU 14:35 → SUATTDRO 17:32 → 3BNU 19:37 → SUATTDRO 03-05 14:50
PROVIDERS: ADMIT Internal Medicine; ATTEND Registered Nurse

== ENCOUNTER 2021-04-03 13:45 | Observation (INO) ==
[2021-04-03 15:08] LABS: Basophils % 0.3 %; Eosinophils # 0.4 K/mcL (0.0-0.6); Eosinophils % 3.6 %; Hematocrit 39.5 % (37.5-50.1); Hemoglobin 13.5 g/dL (12.9-16.9); Immature Granulocytes % 0.8 % (0-4); Lymphocytes # 1.3 K/mcL (0.6-4.6); Lymphocytes % 13.9 %; Mean Corpuscular HGB Conc 34.2 g/dL (31.6-35.5); Mean Corpuscular Hemoglobin 31.9 pg (28.0-33.3); Mean Corpuscular Volume 93.4 fL (83.0-100.0); Mean Platelet Volume 9.1 fL (9.4-12.4); Monocytes # 0.9 K/mcL (0.0-1.3); Monocytes % 9.1 %; Neutrophils # 6.9 K/mcL (1.6-8.9); Platelet Count 149 K/mcL (140-400); Red Blood Count 4.23 M/mcL (4.19-5.50); Red Cell Distribution Width 13.2 % (11.5-14.5); Segmented Neutrophils % 72.3 %; White Blood Count 9.6 K/mcL (4.3-11.1)
[2021-04-03 15:28] LABS: Acetaminophen < 10 mcg/mL (10-20); Alanine Aminotransferase 7 Units/L (7-52); Albumin 3.9 g/dL (3.5-5.7); Albumin/Globulin Ratio 1.8 (1.1-2.2); Alkaline Phosphatase 63 Units/L (34-104); Aspartate Amino Transferase 10 Units/L (13-39); BUN/Creatinine Ratio 15 (6-26); Bilirubin,Direct 0.3 mg/dL (0.0-0.2); Bilirubin,Indirect 0.9 mg/dL (0.0-1.0); Bilirubin,Total 1.2 mg/dL (0.3-1.0); Blood Urea Nitrogen 20 mg/dL (8-23); Carbon Dioxide 25 mEq/L (23-29); Chloride 102 mEq/L (98-107); Globulin 2.2 g/dL (2.4-3.5); Glucose 111 mg/dL (70-105); Osmolality,Calculated 285 (280-300); Potassium 3.7 mEq/L (3.5-5.1); Salicylate < 2.5 mg/dL (15.0-30.0); Sodium 136 mEq/L (136-145); Total Protein 6.1 g/dL (6.4-8.9); eGFR For African Americans 60 (> 60); eGFR For Non-African Americans 49 (> 60)
[2021-04-03] MEDS ORDERED: D5% in Water 1,000 ML IVC PRN (17:46)
[2021-04-03] MEDS ORDERED: Dextrose Gel 15 GM/37.5 ML TUBE PO PRN ×2 (17:46)
[2021-04-03] MEDS ORDERED: *HR* Dextrose 50 % in Water (Vial) 50 ML VIAL IVP PRN (17:46)
[2021-04-03 19:39] LABS: Estimated Average Glucose 140 mg/dl; Hemoglobin A1C 6.5 %
[2021-04-03 19:46] LABS: INR 1.2; Prothrombin Time 13.7 Seconds (9.4-12.1)
[2021-04-04] MEDS: Insulin LISPRO 300 UNITS/3 ML VIAL SUBQ SCH ×5 (00:20→17:57)
[2021-04-04 03:03] LABS: Bilirubin,Urine Negative (Negative); Blood,Urine Negative (Negative); Clarity,Urine Clear (Clear); Color,Urine Light-Yellow (Yellow); Glucose,Urine (UA) Normal (Normal); Ketones,Urine Negative (Negative); Leukocyte Esterase,Urine Negative (Negative); Mucus,Urine Few per lpf (None-Few); Nitrite,Urine Negative (Negative); Protein,Urine 70 mg/dL (Neg-Trace); RBC,Urine 0-3 per hpf (0-3); Specific Gravity,Urine 1.016 (1.010-1.025); Squamous Epithelial Cell,Urine Few per hpf (None-Few); Urobilinogen,Urine Normal (Normal); WBC,Urine 0-3 per hpf (0-3)
[2021-04-04 03:12] LABS: Amphetamine Screen,Urine Negative ng/mL (Cutoff=1000); Barbiturate Screen,Urine Negative ng/mL (Cutoff=200); Benzodiazepines Screen,Urine Negative ng/mL (Cutoff=200); Cannabinoid Screen,Urine Negative ng/mL (Cutoff = 50); Cocaine Screen,Urine Negative ng/mL (Cutoff= 300); Opiate Screen,Urine Negative ng/mL (Cutoff=300); Phencyclidine Screen,Urine Negative ng/mL (Cutoff=25)
[2021-04-04 06:35] VITALS: O2SAT 94
[2021-04-04] MEDS ORDERED: Cyanocobalamin (B-12) 1,000 MCG/ML VIAL IM ONE (13:10)
[2021-04-04 18:08] VITALS: BP 149/82; PULSE 75; TEMP 98.1
== END 2021-04-04 19:20 | disposition home health service (06) ==
LOC: 3BNU 13:45 → EMEROOARM 13:45 → SUATTDRO 17:54 → 3BNU 18:49
PROVIDERS: ADMIT Pharmacist; ATTEND Student in an Organized Health Care Education/Training Program

== ENCOUNTER 2022-02-12 09:17 | Inpatient (IN) ==
[2022-02-12 10:12] LABS: Basophils # 0.1 K/mcL (0.0-0.2); Basophils % 0.5 %; Eosinophils % 9.2 %; Hematocrit 41.2 % (37.5-50.1); Hemoglobin 13.8 g/dL (12.9-16.9); Immature Granulocytes % 2.3 % (0-4); Lymphocytes # 1.7 K/mcL (0.6-4.6); Lymphocytes % 15.6 %; Mean Corpuscular HGB Conc 33.5 g/dL (31.6-35.5); Mean Corpuscular Hemoglobin 30.9 pg (28.0-33.3); Mean Corpuscular Volume 92.2 fL (83.0-100.0); Platelet Count 221 K/mcL (140-400); Red Blood Count 4.47 M/mcL (4.19-5.50); Red Cell Distribution Width 12.6 % (11.5-14.5); Segmented Neutrophils % 63.4 %; White Blood Count 11.1 K/mcL (4.3-11.1)
[2022-02-12 10:18] LABS: Bacteria,Urine Few per hpf (None-Few); Bilirubin,Urine Negative (Negative); Blood,Urine Small (Negative); Clarity,Urine Turbid (Clear); Color,Urine Yellow (Yellow); Glucose,Urine (UA) Normal (Normal); Ketones,Urine Negative (Negative); Leukocyte Esterase,Urine Large (Negative); Mucus,Urine Few per lpf (None-Few); Nitrite,Urine Negative (Negative); Protein,Urine 100 mg/dL (Neg-Trace); Specific Gravity,Urine 1.019 (1.010-1.025); Urobilinogen,Urine Normal (Normal); WBC,Urine TNTC per hpf (0-3)
[2022-02-12 10:32] LABS: Alanine Aminotransferase 11 Units/L (7-52); Albumin 3.9 g/dL (3.5-5.7); Albumin/Globulin Ratio 1.7 (1.1-2.2); Alkaline Phosphatase 72 Units/L (34-104); Aspartate Amino Transferase 16 Units/L (13-39); BUN/Creatinine Ratio 18 (6-26); Bilirubin,Total 0.7 mg/dL (0.3-1.0); Blood Urea Nitrogen 32 mg/dL (8-23); Calcium 9.6 mg/dL (8.6-10.3); Carbon Dioxide 22 mEq/L (23-29); Chloride 100 mEq/L (98-107); Globulin 2.3 g/dL (2.4-3.5); Glucose 223 mg/dL (70-105); Magnesium 1.9 mg/dL (1.6-2.6); Osmolality,Calculated 288 (280-300); Potassium 4.5 mEq/L (3.5-5.1); Sodium 132 mEq/L (136-145); Total Protein 6.2 g/dL (6.4-8.9); Troponin I < 0.03 ng/mL (< 0.04); eGFR For African Americans 45 (> 60); eGFR For Non-African Americans 37 (> 60)
[2022-02-12 10:42] LABS: Influenza A PCR Negative (Negative); Influenza B PCR Negative (Negative); Resp. Syncytial Virus PCR Negative (Negative)
[2022-02-12 10:43] LABS: SARS-CoV-2 by PCR (In House) Negative (Negative)
[2022-02-12] MEDS ORDERED: 0.9 % Sodium Chloride 500 ML IVC ONE (10:46)
[2022-02-12 11:07] LABS: Creatine Kinase 34 Units/L (30-223)
[2022-02-12 11:15] LABS: INR 1.1
[2022-02-12 11:18] LABS: Activated Partial Thrombo Time 27.8 Seconds (26.0-36.0)
[2022-02-12] MEDS ORDERED: cefTRIAXone 1,000 MG in 0.9 % Sodium Chloride Mini Bag 100 ML IVPB ONE (11:19)
[2022-02-12] MEDS ORDERED: Ondansetron 4 MG/2 ML VIAL IVP PRN (12:50)
[2022-02-12] MEDS ORDERED: Naloxone 0.4 MG/ML INJ IVP PRN (12:50)
[2022-02-12] MEDS ORDERED: D5% in Water 1,000 ML IVC PRN (13:19)
[2022-02-12] MEDS ORDERED: *HR* Dextrose 50 % in Water (Syg) 50 ML SYRINGE IVP PRN (13:19)
[2022-02-12] MEDS ORDERED: Dextrose Gel 15 GM/37.5 ML TUBE PO PRN ×2 (13:19)
[2022-02-12 14:10] LABS: Procalcitonin 0.27 ng/mL (0.00-0.15)
[2022-02-12] MEDS: Insulin LISPRO 300 UNITS/3 ML VIAL SUBQ SCH ×2 (17:10→23:42)
[2022-02-12] MEDS: Doxycycline 100 MG in 0.9 % Sodium Chloride Mini Bag 100 ML IVPB SCH (17:10)
[2022-02-13 05:18] LABS: Calcium 8.8 mg/dL (8.6-10.3); Potassium 4.3 mEq/L (3.5-5.1)
[2022-02-13] MEDS: Doxycycline 100 MG in 0.9 % Sodium Chloride Mini Bag 100 ML IVPB SCH ×2 (05:19→17:09)
[2022-02-13] MEDS: Insulin LISPRO 300 UNITS/3 ML VIAL SUBQ SCH ×4 (08:45→20:24)
[2022-02-13] MEDS ORDERED: cefTRIAXone 1,000 MG in 0.9 % Sodium Chloride 10 ML IVP SCH (09:00)
[2022-02-13] MEDS: 0.9 % Sodium Chloride 1,000 ML IVC SCH (10:25)
[2022-02-13 10:41] LABS: mecA/C Methicillin-Resist Gene DETECTED (Not Detect)
[2022-02-13 10:42] LABS: A.calcoaceticus-baumannii cplx Not Detected (Not Detect); Bacteroides fragilis by PCR Not Detected (Not Detect); Candida albicans by PCR Not Detected (Not Detect); Candida auris by PCR Not Detected (Not Detect); Candida glabrata by PCR Not Detected (Not Detect); Candida krusei by PCR Not Detected (Not Detect); Candida parapsilosis by PCR Not Detected (Not Detect); Candida tropicalis by PCR Not Detected (Not Detect); Crypto. neoformans/gattii PCR Not Detected (Not Detect); Enterobacter cloacae Cmplx PCR Not Detected (Not Detect); Enterobacterales by PCR Not Detected (Not Detect); Enterococcus faecalis by PCR Not Detected (Not Detect); Enterococcus faecium by PCR Not Detected (Not Detect); Escherichia coli by PCR Not Detected (Not Detect); Klebs. pneumoniae group by PCR Not Detected (Not Detect); Klebsiella aerogenes by PCR Not Detected (Not Detect); Klebsiella oxytoca by PCR Not Detected (Not Detect); Proteus by PCR Not Detected (Not Detect); Pseudomonas aeruginosa by PCR Not Detected (Not Detect); Salmonella species by PCR Not Detected (Not Detect); Serratia marcescens by PCR Not Detected (Not Detect); Staph epidermidis by PCR DETECTED (Not Detect); Staph lugdunensis by PCR Not Detected (Not Detect); Staphylococcus aureus by PCR Not Detected (Not Detect); Stenotrophomonas maltophilia Not Detected (Not Detect); Streptococcus agalactiae(B)PCR Not Detected (Not Detect); Streptococcus by PCR Not Detected (Not Detect); Streptococcus pneumoniae PCR Not Detected (Not Detect); Streptococcus pyogenes (A) PCR Not Detected (Not Detect)
[2022-02-13 11:19] LABS: Thyroid Stimulating Hormone 5.121 mcIU/mL (0.340-5.600)
[2022-02-13] MEDS ORDERED: Perflutren Lipid Microsphere 1.3 ML in 0.9 % Sodium Chloride 8.7 ML IVP PRN (12:15)
[2022-02-13] MEDS ORDERED: Clobetasol Propionate 0.05% 15 GM Cream Tube TP PRN (12:16)
[2022-02-13] MEDS ORDERED: Melatonin 3 MG TABLET PO PRN (12:16)
[2022-02-13] MEDS ORDERED: Triamcinolone Acet 0.1% CRM 15 GM TUBE TP PRN (12:16)
[2022-02-13 12:27] LABS: Folate 14.1 ng/mL (3.0-16.0)
[2022-02-13] MEDS: *HR* Heparin 5,000 UNIT/ML VIAL SQ SCH (17:09)
[2022-02-13] MEDS: Gabapentin 300 MG CAPSULE PO SCH (20:20)
[2022-02-13] MEDS: levETIRAcetam 250 MG TABLET PO SCH (20:20)
[2022-02-14 01:42] LABS: Basophils # 0.1 K/mcL (0.0-0.2); Basophils % 0.5 %; Eosinophils # 1.4 K/mcL (0.0-0.6); Eosinophils % 13.3 %; Hematocrit 38.6 % (37.5-50.1); Hemoglobin 12.8 g/dL (12.9-16.9); Immature Granulocytes % 1.5 % (0-4); Lymphocytes # 1.8 K/mcL (0.6-4.6); Mean Corpuscular HGB Conc 33.2 g/dL (31.6-35.5); Mean Corpuscular Hemoglobin 30.2 pg (28.0-33.3); Monocytes # 0.9 K/mcL (0.0-1.3); Monocytes % 9.2 %; Neutrophils # 5.9 K/mcL (1.6-8.9); Platelet Count 242 K/mcL (140-400); Red Blood Count 4.24 M/mcL (4.19-5.50); Red Cell Distribution Width 12.3 % (11.5-14.5); Segmented Neutrophils % 57.5 %; White Blood Count 10.2 K/mcL (4.3-11.1)
[2022-02-14 02:02] LABS: BUN/Creatinine Ratio 20 (6-26); Blood Urea Nitrogen 25 mg/dL (8-23); Calcium 8.9 mg/dL (8.6-10.3); Carbon Dioxide 22 mEq/L (23-29); Chloride 107 mEq/L (98-107); Glucose 131 mg/dL (70-105); Magnesium 1.8 mg/dL (1.6-2.6); Osmolality,Calculated 290 (280-300); Phosphorous 2.9 mg/dL (2.7-4.5); Potassium 4.1 mEq/L (3.5-5.1); Sodium 137 mEq/L (136-145); eGFR For African Americans > 60 (> 60); eGFR For Non-African Americans 53 (> 60)
[2022-02-14] MEDS: Doxycycline 100 MG in 0.9 % Sodium Chloride Mini Bag 100 ML IVPB SCH ×2 (05:46→17:28)
[2022-02-14] MEDS: *HR* Heparin 5,000 UNIT/ML VIAL SQ SCH ×2 (05:47→17:28)
[2022-02-14] MEDS ORDERED: Cyanocobalamin (B-12) 1,000 MCG/ML VIAL SQ ONE (07:54)
[2022-02-14] MEDS: amLODIPine 5 MG TABLET PO SCH (10:28)
[2022-02-14] MEDS: Gabapentin 300 MG CAPSULE PO SCH ×2 (10:28→21:27)
[2022-02-14] MEDS: levETIRAcetam 250 MG TABLET PO SCH ×2 (10:29→21:25)
[2022-02-14] MEDS: allopurinoL 100 MG TABLET PO SCH (10:29)
[2022-02-14 10:55] LABS: Ferritin 186 ng/mL (20-250)
[2022-02-14] MEDS: levoFLOXacin 500 MG/100 ML 500 MG/100 ML BAG IVPB SCH (12:52)
[2022-02-14] MEDS: Insulin LISPRO 300 UNITS/3 ML VIAL SUBQ SCH ×4 (12:55→21:20)
[2022-02-14] MEDS: 0.9 % Sodium Chloride 1,000 ML IVC SCH ×2 (21:26→22:09)
[2022-02-15] MEDS: *HR* Heparin 5,000 UNIT/ML VIAL SQ SCH (05:49)
[2022-02-15] MEDS: Doxycycline 100 MG in 0.9 % Sodium Chloride Mini Bag 100 ML IVPB SCH (05:50)
[2022-02-15] MEDS ORDERED: Cyanocobalamin (B-12) 1,000 MCG/ML VIAL SQ ONE (07:42)
[2022-02-15 08:29] VITALS: TEMP 98.6
[2022-02-15] MEDS ORDERED: Vancomycin 1,500 MG/265 ML IV.SOLN IVPB SCH (09:00)
[2022-02-15] MEDS: Insulin LISPRO 300 UNITS/3 ML VIAL SUBQ SCH (09:47)
[2022-02-15] MEDS: allopurinoL 100 MG TABLET PO SCH (09:49)
[2022-02-15] MEDS: amLODIPine 5 MG TABLET PO SCH (09:49)
[2022-02-15] MEDS: levETIRAcetam 250 MG TABLET PO SCH (09:49)
[2022-02-15] MEDS: Gabapentin 300 MG CAPSULE PO SCH (09:49)
[2022-02-15] MEDS: levoFLOXacin 500 MG/100 ML 500 MG/100 ML BAG IVPB SCH (09:54)
[2022-02-15 11:40] VITALS: BP 116/72; PULSE 101; O2SAT 97
== END 2022-02-15 13:58 | disposition home health service (06) | DRG 689 ==
LOC: 3ANU 09:17 → EMEROOARM 09:17 → SUATTDRO 12:14 → 3ANU 13:08
PROVIDERS: ADMIT Student in an Organized Health Care Education/Training Program; ATTEND Internal Medicine

== ENCOUNTER 2022-05-25 16:33 | Inpatient (IN) ==
[2022-05-25] MEDS ORDERED: Iopamidol - 370 500 ML MLS IVP ONE (16:38)
[2022-05-25 16:57] LABS: Hemoglobin 13.6 g/dL (12.9-16.9); Mean Corpuscular Hemoglobin 30.8 pg (28.0-33.3); Mean Corpuscular Volume 90.5 fL (83.0-100.0); Platelet Count 261 K/mcL (140-400); Red Blood Count 4.42 M/mcL (4.19-5.50); Red Cell Distribution Width 12.6 % (11.5-14.5); White Blood Count 11.4 K/mcL (4.3-11.1)
[2022-05-25 17:01] LABS: Bacteria,Urine Few per hpf (None-Few); Bilirubin,Urine Negative (Negative); Blood,Urine Trace (Negative); Budding Yeast,Urine Many per hpf (None Seen); Clarity,Urine Turbid (Clear); Color,Urine Yellow (Yellow); Glucose,Urine (UA) >=1000 mg/dL (Normal); Ketones,Urine Negative (Negative); Leukocyte Esterase,Urine Large (Negative); Nitrite,Urine Positive (Negative); Protein,Urine 70 mg/dL (Neg-Trace); Prothrombin Time 11.3 Seconds (9.4-12.1); Specific Gravity,Urine 1.012 (1.010-1.025); Urobilinogen,Urine Normal (Normal); WBC,Urine 30-50 per hpf (0-3)
[2022-05-25 17:22] LABS: BUN/Creatinine Ratio 16 (6-26); Blood Urea Nitrogen 19 mg/dL (8-23); Calcium 9.6 mg/dL (8.6-10.3); Carbon Dioxide 25 mEq/L (23-29); Chloride 102 mEq/L (98-107); Creatine Kinase 32 Units/L (30-223); Ethanol < 10 mg/dL (Less than 10); Glucose 276 mg/dL (70-105); Osmolality,Calculated 296 (280-300); Potassium 3.9 mEq/L (3.5-5.1); Sodium 137 mEq/L (136-145); Troponin I < 0.03 ng/mL (< 0.04)
[2022-05-25] MEDS ORDERED: Naloxone 0.4 MG/ML INJ IVP PRN (21:09)
[2022-05-25] MEDS ORDERED: Ondansetron 4 MG/2 ML VIAL IVP PRN (21:09)
[2022-05-25] MEDS ORDERED: Acetaminophen 325 MG TABLET PO PRN (21:09)
[2022-05-25] MEDS ORDERED: D5% in Water 1,000 ML IVC PRN (21:15)
[2022-05-25] MEDS ORDERED: *HR* Dextrose 50 % in Water (Syg) 50 ML SYRINGE IVP PRN (21:15)
[2022-05-25] MEDS ORDERED: Dextrose Gel 15 GM/37.5 ML TUBE PO PRN ×2 (21:15)
[2022-05-25] MEDS: 0.9 % Sodium Chloride 1,000 ML IVC SCH (21:45)
[2022-05-25] MEDS ORDERED: Triamcinolone Acet 0.1% CRM 15 GM TUBE TP PRN (21:57)
[2022-05-25] MEDS ORDERED: Clobetasol Propionate 0.05% 15 GM Cream Tube TP PRN (21:57)
[2022-05-25] MEDS ORDERED: Melatonin 3 MG TABLET PO PRN (21:57)
[2022-05-26] MEDS: Ampicillin/Sulbactam 1,500 MG in 0.9 % Sodium Chloride Mini Bag 100 ML IVPB SCH ×3 (01:16→14:00)
[2022-05-26 03:07] LABS: Basophils % 0.4 %; Eosinophils # 0.7 K/mcL (0.0-0.6); Eosinophils % 6.5 %; Hematocrit 37.2 % (37.5-50.1); Hemoglobin 12.5 g/dL (12.9-16.9); Immature Granulocytes % 1.3 % (0-4); Lymphocytes # 1.6 K/mcL (0.6-4.6); Lymphocytes % 15.2 %; Mean Corpuscular HGB Conc 33.6 g/dL (31.6-35.5); Mean Corpuscular Volume 92.3 fL (83.0-100.0); Mean Platelet Volume 9.1 fL (9.4-12.4); Monocytes # 0.8 K/mcL (0.0-1.3); Monocytes % 7.3 %; Neutrophils # 7.5 K/mcL (1.6-8.9); Platelet Count 231 K/mcL (140-400); Red Blood Count 4.03 M/mcL (4.19-5.50); Red Cell Distribution Width 12.7 % (11.5-14.5); Segmented Neutrophils % 69.3 %; White Blood Count 10.8 K/mcL (4.3-11.1)
[2022-05-26 03:14] LABS: INR 1.1; Prothrombin Time 12.4 Seconds (9.4-12.1)
[2022-05-26 03:24] LABS: Alanine Aminotransferase 6 Units/L (7-52); Albumin 3.3 g/dL (3.5-5.7); Albumin/Globulin Ratio 1.4 (1.1-2.2); Alkaline Phosphatase 63 Units/L (34-104); Aspartate Amino Transferase 9 Units/L (13-39); BUN/Creatinine Ratio 15 (6-26); Bilirubin,Direct 0.1 mg/dL (0.0-0.2); Bilirubin,Indirect 0.6 mg/dL (0.0-1.0); Bilirubin,Total 0.7 mg/dL (0.3-1.0); Blood Urea Nitrogen 16 mg/dL (8-23); Calcium 8.2 mg/dL (8.6-10.3); Carbon Dioxide 24 mEq/L (23-29); Chloride 106 mEq/L (98-107); Chol/HDL Ratio 3.8 (0-4.9); Cholesterol 103 mg/dL (< 200); Globulin 2.3 g/dL (2.4-3.5); Glucose 163 mg/dL (70-105); HDL Cholesterol 27 mg/dL (40-59); LDL Cholesterol,Calculated 45 mg/dL (< 100); Magnesium 1.4 mg/dL (1.6-2.6); Osmolality,Calculated 299 (280-300); Phosphorous 2.7 mg/dL (2.7-4.5); Potassium 3.4 mEq/L (3.5-5.1); Sodium 142 mEq/L (136-145); Total Protein 5.6 g/dL (6.4-8.9); Triglycerides 157 mg/dL (< 150); Troponin I < 0.03 ng/mL (< 0.04)
[2022-05-26 03:32] LABS: Estimated Average Glucose 209 mg/dl; Hemoglobin A1C 8.9 %
[2022-05-26 03:44] LABS: Folate 11.8 ng/mL (3.0-16.0)
[2022-05-26] MEDS ORDERED: levoFLOXacin 500 MG/100 ML 500 MG/100 ML BAG IVPB SCH (09:00)
[2022-05-26] MEDS: Gabapentin 300 MG CAPSULE PO SCH ×2 (09:01→20:18)
[2022-05-26] MEDS: Cholecalciferol (D-3) 1,000 UNIT (25MCG) TABLET PO SCH (09:01)
[2022-05-26] MEDS: levETIRAcetam 250 MG TABLET PO SCH ×2 (09:01→20:18)
[2022-05-26] MEDS: allopurinoL 100 MG TABLET PO SCH (09:01)
[2022-05-26] MEDS: 0.9 % Sodium Chloride 1,000 ML IVC SCH (09:07)
[2022-05-26] MEDS: Thiamine (B-1) 100 MG in 0.9 % Sodium Chloride 50 ML IVPB SCH ×2 (09:21→20:30)
[2022-05-26] MEDS: Insulin LISPRO 300 UNITS/3 ML VIAL SUBQ SCH ×3 (10:39→16:57)
[2022-05-26] MEDS ORDERED: DUPILUMAB SUBQ SCH (13:30)
[2022-05-26] MEDS: Aspirin 81 MG TAB.CHEW PO SCH (14:00)
[2022-05-26] MEDS: Cyanocobalamin (B-12) 1,000 MCG/ML VIAL SQ SCH (14:00)
[2022-05-26 20:39] VITALS: PULSE 70; TEMP 98; O2SAT 94
[2022-05-27 06:09] VITALS: BP 103/52
[2022-05-27] MEDS: allopurinoL 100 MG TABLET PO SCH (07:53)
[2022-05-27] MEDS: Cholecalciferol (D-3) 1,000 UNIT (25MCG) TABLET PO SCH (07:53)
[2022-05-27] MEDS: Cyanocobalamin (B-12) 1,000 MCG/ML VIAL SQ SCH (07:53)
[2022-05-27] MEDS: Gabapentin 300 MG CAPSULE PO SCH (07:53)
[2022-05-27] MEDS: Aspirin 81 MG TAB.CHEW PO SCH (07:53)
[2022-05-27] MEDS: levETIRAcetam 250 MG TABLET PO SCH (07:53)
[2022-05-27] MEDS: Insulin LISPRO 300 UNITS/3 ML VIAL SUBQ SCH ×2 (08:01→12:11)
[2022-05-27 08:37] LABS: Basophils # 0.1 K/mcL (0.0-0.2); Basophils % 0.6 %; Eosinophils # 0.9 K/mcL (0.0-0.6); Eosinophils % 8.4 %; Hematocrit 39.3 % (37.5-50.1); Hemoglobin 13.1 g/dL (12.9-16.9); Immature Granulocytes % 1.4 % (0-4); Lymphocytes # 1.8 K/mcL (0.6-4.6); Lymphocytes % 17.6 %; Mean Corpuscular HGB Conc 33.3 g/dL (31.6-35.5); Mean Corpuscular Hemoglobin 30.5 pg (28.0-33.3); Mean Corpuscular Volume 91.4 fL (83.0-100.0); Mean Platelet Volume 9.2 fL (9.4-12.4); Monocytes # 0.7 K/mcL (0.0-1.3); Monocytes % 6.9 %; Neutrophils # 6.6 K/mcL (1.6-8.9); Platelet Count 247 K/mcL (140-400); Red Cell Distribution Width 12.9 % (11.5-14.5); Segmented Neutrophils % 65.1 %; White Blood Count 10.1 K/mcL (4.3-11.1)
[2022-05-27 08:50] LABS: Calcium 9.2 mg/dL (8.6-10.3); Magnesium 2.3 mg/dL (1.6-2.6); Phosphorous 3.2 mg/dL (2.7-4.5); Potassium 4.2 mEq/L (3.5-5.1)
[2022-05-27] MEDS ORDERED: levoFLOXacin 750 MG TABLET PO SCH (09:00)
[2022-05-27] MEDS: Thiamine (B-1) 100 MG in 0.9 % Sodium Chloride 50 ML IVPB SCH (10:00)
== END 2022-05-27 14:45 | disposition home health service (06) | DRG 69 ==
LOC: 3NENU 16:33 → EMEROOARM 16:33 → SUATTDRO 18:58 → 3NENU 19:53
PROVIDERS: ADMIT Student in an Organized Health Care Education/Training Program; ATTEND Internal Medicine